=== PATIENT | female | born 1970 | race Caucasian/White ===

== ENCOUNTER 2020-11-24 07:33 | Outpatient (REF) | payer BC, SELFPAY ==
[2020-11-24 11:12] LABS: MANUAL DIFF FLAG NO
[2020-11-24 11:27] LABS: Basophils Percent Auto 0.8 % (0-2); Eosinophils Absolute Auto 0.2 X10*3/uL (0.0-0.4); Eosinophils Percent Auto 4.2 % (0-4); Hematocrit 41.1 % (37-47); Hemoglobin 13.6 g/dl (12.0-16.0); Imm Gran Abs Auto 0.02 X10*3/uL (0.00-0.03); Imm Gran Pct Auto 0.4 % (0.0-0.4); Lymphocytes Absolute Auto 1.7 X10*3/uL (1.2-4.9); Lymphocytes Percent Auto 35.2 % (20-40); Mean Corpuscular HGB Conc 33.1 g/dl (31.0-35.0); Mean Corpuscular Hemoglobin 31.1 pg (27.0-33.0); Mean Corpuscular Volume 93.8 fL (80-98); Mean Platelet Volume 10.3 fL (9.4-12.3); Monocytes Absolute Auto 0.4 X10*3/uL (0.1-1.2); Neutrophils Absolute Auto 2.4 X10*3/uL (2.0-8.3); Neutrophils Percent Auto 51.4 % (45-73); Platelet Count 238 X10*3/uL (160-400); Red Blood Count 4.38 X10*6/uL (4.20-5.50); Red Cell Distribution Width 12.1 % (11.0-16.0); White Blood Count 4.7 X10*3/uL (4.8-10.8)
[2020-11-24 11:29] LABS: Estimated Average Glucose 97 mg/dL
[2020-11-24 11:44] LABS: Alanine Aminotransferase 14 U/L (0-31); Albumin Level 4.2 g/dL (3.5-5.0); Alkaline Phosphatase 89 U/L (39-117); Anion Gap 14 (12-20); Aspartate Amino Transferase 16 U/L (5-31); Bilirubin Total 0.6 mg/dL (0.0-1.0); Blood Urea Nitrogen 19 mg/dL (9-16); Calcium 9.3 mg/dL (8.4-10.2); Carbon Dioxide 25 mmol/L (22-29); Chloride 108 mmol/L (96-108); Cholesterol 254 mg/dL; Estimated Glomerular Filt Rate > 60; Glucose Fasting 83 mg/dL (60-99); HDL Cholesterol 65 mg/dL; LDL Cholesterol Calculated 174 mg/dl; Potassium 4.6 mmol/L (3.3-5.1); Sodium 142 mmol/L (135-145); Total Protein 6.8 g/dL (6.5-8.0); Triglycerides 75 mg/dL
[2020-11-24 11:50] LABS: TSH reflex Free T4 0.74 uIU/mL (0.32-4.0)
== END 2020-11-24 07:34 | disposition home or self-care (01) ==
LOC: HO.HMGCLDS 07:33
PROVIDERS: PCP Internal Medicine; Visit Provider Internal Medicine
DX: E66.09 Other obesity due to excess calories (principal); E78.9 Disorder of lipoprotein metabolism, unspecified; F31.9 Bipolar disorder, unspecified; R73.01 Impaired fasting glucose; Z87.898 Personal history of other specified conditions
CPT/HCPCS: 36415; 80053; 80061; 83036; 84443; 85025

== ENCOUNTER → 2021-03-08 14:53 | Outpatient (BNVA) | payer BC, SELFPAY | PROVIDERS: PCP Internal Medicine; Referring Provider Internal Medicine; Visit Provider Physician Assistant ==

== ENCOUNTER 2021-04-21 11:40 | Day surgery (SDC) | payer BC, SELFPAY ==
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
[2021-04-21 12:25] VITALS: BMI 39.4
[2021-04-21] MEDS: Lactated Ringers 1,000 ML 100 ML IVCONT (13:12)
--- NOTE | 2021-04-21 14:04 | MHC.SHP ---
Pre-Procedural Eval Section A Date of Service: 04/21/21 The patient is an INPATIENT: No The History & Physical has been completed within 30 days and I have reviewed it.: No Section B Chief Complaint: Screening Details of Present Illness: Colon cancer screening Relevant Family History (Specify if Yes): No Relevant Social History: Tobacco Use (past smoker) Present Medications: see Short Stay Collaborative assessment Medical History: Significant History (Bipolar disorder, obesity) History of Previous Operations: Relevant previous surgery/procedure and date(s) (Status post bariatric surgery) Allergies: Allergies Allergy/AdvReac Type Severity Reaction Status Date / Time paroxetine [Paxil] AdvReac Unknown feels Verified 04/21/21 10:35 like I'm in a fog vicodin AdvReac Unknown Gi upset Uncoded 04/21/21 10:35 Review of Systems Sugical H&P ROS: Negative: Constitution, Cardiovascular, Respiratory and Gastrointestinal Exam Surgical H&P Exam: Normal: Heart, Normal: Lungs, Normal: Extremities and Normal: Abdomen Plan Diagnosis/Plan: Unchanged I have reviewed the history and physical and performed a pertinent physical examination on my patient. No changes have occurred unless specified.
--- NOTE | 2021-04-21 14:44 | PM.OP ---
Brief Operative Note Date of Service: 04/21/21 Pre-op diagnosis: Colon cancer screening Post-op diagnosis: other (Diverticulosis, hemorrhoids) Procedure: COLONOSCOPY TILL CECUM Consent: Indications for the procedure and potential complications of bleeding, perforation, reaction to medications and missed diagnosis were discussed with the patient and informed consent was obtained. Instrument: Olympus PCF H 190 L variable stiffness pediatric colonoscope Monitoring: Vital signs and clinical assessment, intermittent blood pressure monitoring, continuous EKG monitoring, Pulse oximetry and Carbon Dioxide monitoring were done throughout the procedure. Colon withdrawl time was 15 minutes. Procedure: The patient was placed in the left lateral decubitis position and pre-procedure medications were administered. After a digital rectal examination of the ano-rectum, the video colonoscope was inserted into the rectum and advanced through the colon to the cecum. The colonoscope was slowly withdrawn in a retrograde panoramic fashion and the colon mucosa was carefully examined including a retroflexed view of the rectum. Findings and interventions are described below. Procedure Difficulty: Without difficulty Findings: Terminal Ileum: Not evaluated Cecum: Normal Ascending Colon: Normal Transverse Colon: Normal Descending Colon: Moderate diverticulosis Sigmoid Colon: Moderate diverticulosis Rectum: Normal Ano-rectum: Moderate internal hemorrhoids and perianal skin tags Colon preparation: Good after some irrigation Impression and Post Procedure Diagnosis: Colonoscopy Findings: No polyps were detected Moderate diverticulosis seen in the left colon Moderate hemorrhoids on retroflexed exam. Plan: Patient has an appointment on 05/04/21 in the GI Clinic with MARÍA Abernathy to cancel since she is not having any GI problems and no polyps were detected.. Repeat Colonoscopy in 10 years. Above findings were reviewed with the patient and diverticulosis handout was given in the discharge area Surgeon: Leda Chisholm MD Anesthesia: MAC (Jessy Mckee CRNA) Was an Parachute/Combatant Diver Officer used for this Procedure?: Yes Parachute/Combatant Diver Officer: Raza Elizondo Estimated blood loss (mL): 0 Pathology: none sent Condition: stable Disposition: PACU
[2021-04-21 14:45] VITALS: BP 108/42; PULSE 86; RESP 16; TEMP 36.2; O2SAT 97
--- NOTE | 2021-04-21 14:47 | W.PM.OPN ---
Operative Note Operative Note Date of Service: 04/21/21 Narrative: Pre-op diagnosis:?Colon cancer screening Post-op diagnosis:?other (Diverticulosis, hemorrhoids) Procedure:? COLONOSCOPY TILL CECUM Consent: Indications for the procedure and potential complications of bleeding, perforation, reaction to medications and missed diagnosis were discussed with the patient and informed consent was obtained. Instrument: Olympus PCF H 190 L variable stiffness pediatric colonoscope Monitoring: Vital signs and clinical assessment, intermittent blood pressure monitoring, continuous EKG monitoring, Pulse oximetry and Carbon Dioxide monitoring were done throughout the procedure. Colon withdrawl time was 15 minutes. Procedure: The patient was placed in the left lateral decubitis position and pre-procedure medications were administered. After a digital rectal examination of the ano-rectum, the video colonoscope was inserted into the rectum and advanced through the colon to the cecum. The colonoscope was slowly withdrawn in a retrograde panoramic fashion and the colon mucosa was carefully examined including a retroflexed view of the rectum. Findings and interventions are described below. Procedure Difficulty: Without difficulty Findings: Terminal Ileum: Not evaluated Cecum:? Normal Ascending Colon:? Normal Transverse Colon:? Normal Descending Colon:? Moderate diverticulosis Sigmoid Colon:? Moderate diverticulosis Rectum:? Normal Ano-rectum:? Moderate internal hemorrhoids and perianal skin tags Colon preparation:? Good after some irrigation Impression and Post Procedure Diagnosis: Colonoscopy Findings: No polyps were detected Moderate diverticulosis seen in the left colon Moderate hemorrhoids on retroflexed exam. Plan: Patient has an appointment on 05/04/21 in the GI Clinic with MARÍA Abernathy to cancel since she is not having any GI problems and no polyps were detected.. Repeat Colonoscopy in 10 years. Above findings were reviewed with the patient and diverticulosis handout was given in the discharge area Surgeon:?Leda Chisholm MD Anesthesia:?MAC (Jessy Mckee CRNA) Was an Braiding Machine Operator used for this Procedure?:?Yes Braiding Machine Operator:?Raza Elizondo Estimated blood loss (mL):?0 Pathology:?none sent Condition:?stable Disposition:?PACU
[2021-04-21 15:00] VITALS: BP 140/82; PULSE 70; RESP 16; TEMP 36.2; O2SAT 98
== END 2021-04-21 15:46 | disposition home or self-care (01) ==
PROVIDERS: PCP Internal Medicine; Visit Provider Internal Medicine Gastroenterology
PROC: 0DJD8ZZ Inspection of Lower Intestinal Tract, Via Natural or Artificial Opening Endoscopic (ICD-10-PCS; CPT 45378; principal; 2021-04-21 13:20)
DX: Z12.11 Encounter for screening for malignant neoplasm of colon (principal); K57.30 Diverticulosis of large intestine without perforation or abscess without bleeding; K64.8 Other hemorrhoids; K64.4 Residual hemorrhoidal skin tags; Z79.899 Other long term (current) drug therapy; Z98.84 Bariatric surgery status; Z87.891 Personal history of nicotine dependence
CPT/HCPCS: 45378

== ENCOUNTER 2021-10-09 16:12 | Outpatient (REF) | payer BC, SELFPAY ==
--- NOTE | ~2021-10-09 | MM_ITS ---
EXAMINATION: MM SCREENING DIGITAL BREAST TOMOSYNTHESIS, BILATERAL CLINICAL INFORMATION: Screening. Asymptomatic. The lifetime risk of breast cancer based on the Tyrer-Cuzick Model is 7%. COMPARISON: Mammography: 01/07/2020, 05/19/2019, 11/27/2018, 11/10/2018, 11/07/2017 TECHNIQUE: Digital breast tomosynthesis is performed in both the craniocaudal and mediolateral oblique views along with computer-aided detection (CAD). Synthesized 2D images are generated from the tomosynthesis. FINDINGS: There are scattered areas of fibroglandular density (ACR BI-RADS breast composition Category b). There are no significant masses, abnormal calcifications, or other abnormalities. There is no architectural abnormality. No developing density. No significant changes from prior study. MM/MM tomosynthesis screening BI IMPRESSION: No mammographic evidence of malignancy. ASSESSMENT: BI-RADS 1: Negative RECOMMENDATION: Routine annual mammography screening. This patient's information was entered into a reminder system with a target due date for their next mammogram.
== END 2021-10-09 16:13 | disposition home or self-care (01) ==
LOC: HO.MAMMO 16:12
PROVIDERS: Visit Provider Internal Medicine
DX: Z12.31 Encounter for screening mammogram for malignant neoplasm of breast (principal)
CPT/HCPCS: 77063; 77067

== ENCOUNTER 2022-10-15 15:01 | Outpatient (REF) | payer BC, SELFPAY ==
--- NOTE | ~2022-10-15 | MM_ITS ---
EXAMINATION: MM SCREENING DIGITAL BREAST TOMOSYNTHESIS, BILATERAL CLINICAL INFORMATION: Screening. Asymptomatic. The lifetime risk of breast cancer based on the Tyrer-Cuzick Model is 6.7%. COMPARISON: Mammography: and studies dating back to 01/08/2014 TECHNIQUE: Digital breast tomosynthesis is performed in both the craniocaudal and mediolateral oblique views along with computer-aided detection (CAD). Synthesized 2D images are generated from the tomosynthesis. FINDINGS: There are scattered areas of fibroglandular density (ACR BI-RADS breast composition Category b). There is a stable parenchymal pattern of the left breast with no new abnormal dominant mass or suspicious grouping of microcalcifications. There is a region of distortion within the upper outer aspect of the right breast which on mediolateral oblique projection may have a more solid component and for which spot compression view is recommended. MM/MM tomosynthesis screening BI IMPRESSION: Question developing density upper outer aspect of the right breast. ASSESSMENT: BI-RADS 0: Incomplete - Need Additional Imaging Evaluation RECOMMENDATION: Routine annual mammography screening. This patient's information was entered into a reminder system with a target due date for their next mammogram.
== END 2022-10-15 15:02 | disposition home or self-care (01) ==
LOC: HO.MAMMO 15:01
PROVIDERS: Visit Provider Internal Medicine
DX: Z12.31 Encounter for screening mammogram for malignant neoplasm of breast (principal)
CPT/HCPCS: 77063; 77067

== ENCOUNTER 2022-11-07 14:46 | Outpatient (REF) | payer BC, SELFPAY ==
--- NOTE | ~2022-11-07 | MM_ITS ---
EXAMINATION: MM DIAGNOSTIC DIGITAL BREAST TOMOSYNTHESIS, RIGHT CLINICAL INFORMATION: Recall from screening for question of developing density upper outer right breast. COMPARISON: Multiple prior mammography exams, including most recent 10/15/2022. TECHNIQUE: Digital breast tomosynthesis is performed. 2D images are generated from the tomosynthesis. The following views are obtained: Spot MLO, standard ML. FINDINGS: There are scattered areas of fibroglandular density (ACR BI-RADS breast composition Category b). The additional views show no significant changes from prior studies. There is no architectural abnormality, developing density, or mass. Recent screening mammography appears similar to multiple prior exams. Results are discussed with the patient at time of visit. MM/MM tomosynthesis added views R IMPRESSION: No mammographic evidence of malignancy. ASSESSMENT: BI-RADS 1: Negative RECOMMENDATION: Routine annual mammography screening. This patient's information was entered into a reminder system with a target due date for their next mammogram.
== END 2022-11-07 14:47 | disposition home or self-care (01) ==
LOC: HO.MAMMO 14:46
PROVIDERS: PCP Internal Medicine; Visit Provider Internal Medicine
DX: N64.89 Other specified disorders of breast (principal)
CPT/HCPCS: 77061; 77065

== ENCOUNTER 2023-01-29 09:02 | Outpatient (AMB) | payer BC, SELFPAY ==
--- NOTE | 2023-01-29 09:03 | MHC.PC.OV ---
Vital Signs 01/29/23 09:05 Height 5 ft 4 in Weight 233 lb BMI 40.0 BP 130/84 Blood Pressure Location Lt brachial Position Sitting Pulse 76 Pulse Source Pulse Oximeter Pulse Oximetry (%) 98 Oxygen Delivery Method Room Air Intake Visit Reasons: PE Allergies paroxetine [Paxil] Adverse Reaction (Unknown, Verified 01/29/23 09:05) feels like I'm in a fog vicodin Adverse Reaction (Unknown, Uncoded 01/29/23 09:05) Gi upset Medication List - Last Reconciled 01/29/23 by Kaylin Oneill MD buspirone 10 mg PO ONCE PRN 90 days fluoxetine 20 mg PO DAILY multivitamin (Daily Multi-Vitamin tablet) 1 tab PO DAILY omega 3-uci-ycj-fish oil 60-90-500 mg (Fish Oil) 1 cap PO DAILY quetiapine 100 mg PO BEDTIME simvastatin 10 mg PO DAILY 90 days vitamin C-biotin PO Tobacco use date assessed: 10/10/22 Dental Screening Dental Screen Date: 01/29/23 Did you have a dental visit in the last 12 months?: No Did you have a dental problem in the last 6 months where you did not have access to dental care?: No Was dental information given to patient?: Patient has dentist HPI PE HPI Details Physical exam appointment patient want to try Ozempic as a weight loss She has a history of gastric sleeve 6 years ago and is exercising daily patient says that she knows what to eat what not to eat and is not able to lose weight. We went over the side effect of this medication including hypoglycemia pancreatitis nausea I have encouraged her to read the whole side effect profile given through the pharmacy Once patient picked up the medication she will book appointment with a nurse so we can teach her how to inject. Patient will need monthly visit after that so we can continue to monitor the progress. Mammogram was October of this year Pap smear patient have appointment with Dr. Kim that March 28 of this year Colonoscopy was in May 2 years ago at [facility] patient will be due in 8 more years. Medication list reviewed Labs to be done before next visit in 3 months. [facility] Medical History Anxiety and depression Bipolar disorder History of alcohol abuse History of panic attacks Iron deficiency anemia Surgical History Status post bariatric surgery Family History Other Substance use disorder Social History Household Members: Spouse Housing: House Alcohol intake: former Year quit: 2020 Patient Tobacco Use Status: Former Tobacco user Quit Date: 1993 e-Cigarette/Vaping Use: Never Used Second Hand Smoke Exposure: No service: No Current occupational status: unemployed Cognitive needs: No Hearing needs: No Vision needs: No Questionnaire Thrive Questionnaire Date Thrive assessed: 11/21/21 AUDIT C Alcohol Use Questionnaire (AUDIT-C) 1. How often do you have a drink containing alcohol?: Never 3. How often do you have six or more drinks on one occasion?: Never Total Score: 0 Score Reviewed/Action Taken: No SKYLER-7 AMB Questionnaire SKYLER-7 Date SKYLER - 7 assessed: 11/21/21 Source: Developed by Drs. Michael Stoner, Vanda Cedillo, Anatoliy Wilson and colleagues, with an educational rodri from [employer]. Review of Systems Const Denies chills, Denies fever(s) and Denies headache(s) Eyes Denies blurry vision ENT Denies headache(s), Denies nasal discharge, Denies nasal obstruction, Denies odynophagia and Denies sinus pain Card Denies chest pain at rest and Denies chest pain with activity Resp Denies cough and Denies hemoptysis GI Denies diarrhea, Denies odynophagia, Denies vomiting and Denies hematemesis Reports as per HPI Musc Denies abnormal gait Skin/Breast Reports as per HPI Neuro Denies Neuro-related abnormal movements, Denies Abnormal speech present, Denies abnormal gait, Denies headache(s) and Denies Sensory deficit (Neuro) Psych Denies mood swings and Denies paranoia Endo Reports as per HPI Matias/Lymph Reports as per HPI Aller/Immun Reports as per HPI Physical exam (Primary Care) Vital Signs: Last Vital Signs Pulse 76 01/29/23 09:05 BP 130/84 01/29/23 09:05 Pulse Ox 98 01/29/23 09:05 Oxygen Delivery Method Room Air 01/29/23 09:05 BMI result Body Mass Index 40.0 Tobacco/Smoking Status: Tobacco use Status Tobacco use date assessed 10/10/22 01/29/23 09:08 Patient Tobacco Use Status Former Tobacco user 01/29/23 09:08 e-Cigarette/Vaping Use Never Used 01/29/23 09:08 Thrive Assessment: Date of Thrive Assessment Date Thrive assessed 11/21/21 01/29/23 09:08 Const General: cooperative, comfortable and no acute distress Orientation/consciousness: patient oriented x3 HENMT Head: Yes normocephalic and Yes atraumatic Eyes General: appearance normal, both eyes and all related structures Pupils: Equal, round and reactive pupils present EOM: EOMs intact bilaterally Neck Neck: Yes supple and No lymphadenopathy Thyroid: Thyroid normal Lymphatic: no lymphadenopathy noted Chest Breast/axilla palpation: normal palpation of the breasts Resp Effort & Inspection: normal respiratory effort and able to speak in complete sentences Auscultation: clear to auscultation bilaterally Cardio Heart sounds: S1 normal heart sound present and S2 normal heart sound present GI Palpation (GI): Soft to palpation and nontender Auscultation: normal bowel sounds General: Yes no CVA tenderness Back/Spine/Pelvis Back: no CVA tenderness Skin General skin exam: elasticity normal and turgor normal Neuro General: patient oriented x3 and gait normal Cranial nerves: Yes Equal, round and reactive pupils present Speech: No Abnormal speech present Sensory Exam: No Sensory deficit (Neuro) Coordination: tandem gait normal and Romberg test negative Extrem General: Yes normal exam except as noted and No edema Assessment and Plan Assessment & Plan (1) Encounter for general adult medical examination with abnormal findings: Code(s): Z00.01 - Encounter for general adult medical examination with abnormal findings (2) Bipolar disorder: Code(s): F31.9 - Bipolar disorder, unspecified (3) Lipid disorder: Code(s): E78.9 - Disorder of lipoprotein metabolism, unspecified (4) Impaired fasting blood sugar: Code(s): R73.01 - Impaired fasting glucose (5) Obesity due to excess calories: Code(s): E66.09 - Other obesity due to excess calories (6) Major depressive disorder, severe: Code(s): F32.2 - Major depressive disorder, single episode, severe without psychotic features (7) Anxiety disorder: Code(s): F41.9 - Anxiety disorder, unspecified Plan Physical exam appointment patient want to try Ozempic as a weight loss She has a history of gastric sleeve 6 years ago and is exercising daily patient says that she knows what to eat what not to eat and is not able to lose weight. We went over the side effect of this medication including hypoglycemia pancreatitis nausea I have encouraged her to read the whole side effect profile given through the pharmacy Once patient picked up the medication she will book appointment with a nurse so we can teach her how to inject. Patient will need monthly visit after that so we can continue to monitor the progress. Mammogram was October of this year Pap smear patient have appointment with Dr. Kim that March 28 of this year Colonoscopy was in May 2 years ago at [facility] patient will be due in 8 more years. Medication list reviewed Labs to be done before next visit in 3 months. Orders: Orders Comprehensive [place]. Panel Fast Today E66.09 - Other obesity due to excess calories, E78.9 - Disorder of lipoprotein metabolism, unspecified, F31.9 - Bipolar disorder, unspecified, F32.2 - Major depressive disorder, single episode, severe without psychotic features, F41.9 - Anxiety disorder, unspecified, R73.01 - Impaired fasting glucose, Z00.01 - Encounter for general adult medical examination with abnormal findings Lipid Panel Today E66.09 - Other obesity due to excess calories, E78.9 - Disorder of lipoprotein metabolism, unspecified, F31.9 - Bipolar disorder, unspecified, F32.2 - Major depressive disorder, single episode, severe without psychotic features, F41.9 - Anxiety disorder, unspecified, R73.01 - Impaired fasting glucose, Z00.01 - Encounter for general adult medical examination with abnormal findings TSH reflex Free T4 Today E66.09 - Other obesity due to excess calories, E78.9 - Disorder of lipoprotein metabolism, unspecified, F31.9 - Bipolar disorder, unspecified, F32.2 - Major depressive disorder, single episode, severe without psychotic features, F41.9 - Anxiety disorder, unspecified, R73.01 - Impaired fasting glucose, Z00.01 - Encounter for general adult medical examination with abnormal findings Complete Blood Count Auto Diff Today E66.09 - Other obesity due to excess calories, E78.9 - Disorder of lipoprotein metabolism, unspecified, F31.9 - Bipolar disorder, unspecified, F32.2 - Major depressive disorder, single episode, severe without psychotic features, F41.9 - Anxiety disorder, unspecified, R73.01 - Impaired fasting glucose, Z00.01 - Encounter for general adult medical examination with abnormal findings Medications: New semaglutide for 4 weeks 0.25 mg (0.368 mL) subcut QWEEK 2 mL 0RF 30 days Coding Level of Care Code Est Pt Prev Care 40-64y(24244) Diagnoses Encounter for general adult medical examination with abnormal findings Z00.01 Bipolar disorder F31.9 Lipid disorder E78.9 Impaired fasting blood sugar R73.01 Obesity due to excess calories E66.09 Major depressive disorder, severe F32.2 Anxiety disorder F41.9
[2023-01-29 09:05] VITALS: BP 130/84; PULSE 76; O2SAT 98; BMI 40.0
== END 2023-01-29 09:35 | disposition home or self-care (01) ==
PROVIDERS: Visit Provider Internal Medicine
DX: Z00.01 Encounter for general adult medical examination with abnormal findings (principal); F31.9 Bipolar disorder, unspecified; F41.9 Anxiety disorder, unspecified; R73.01 Impaired fasting glucose; E78.9 Disorder of lipoprotein metabolism, unspecified; E66.09 Other obesity due to excess calories
CPT/HCPCS: 99396

== ENCOUNTER 2023-04-18 08:57 | Outpatient (REF) | payer BC, SELFPAY ==
[2023-04-18 11:04] LABS: MANUAL DIFF FLAG NO
[2023-04-18 11:32] LABS: Basophils Absolute Auto 0.1 X10*3/uL (0.0-0.2); Basophils Percent Auto 0.9 % (0-2); Eosinophils Absolute Auto 0.2 X10*3/uL (0.0-0.4); Eosinophils Percent Auto 3.3 % (0-4); Hematocrit 38.9 % (37.0-47.0); Imm Gran Abs Auto 0.02 X10*3/uL (0.00-0.03); Imm Gran Pct Auto 0.4 % (0.0-0.4); Lymphocytes Absolute Auto 1.6 X10*3/uL (1.2-4.9); Lymphocytes Percent Auto 28.6 % (20-40); Mean Corpuscular HGB Conc 33.4 g/dl (31.0-35.0); Mean Corpuscular Hemoglobin 30.7 pg (27.0-33.0); Mean Platelet Volume 9.8 fL (9.4-12.3); Monocytes Absolute Auto 0.4 X10*3/uL (0.1-1.2); Monocytes Percent Auto 7.9 % (2-11); Neutrophils Absolute Auto 3.2 x10*3/uL (2.0-8.3); Neutrophils Percent Auto 58.9 % (45-73); Platelet Count 237 X10*3/uL (160-400); Red Blood Count 4.23 X10*6/uL (4.20-5.50); Red Cell Distribution Width 12.3 % (11.0-16.0); White Blood Count 5.5 X10*3/uL (4.8-10.8)
[2023-04-18 12:46] LABS: TSH reflex Free T4 0.82 uIU/mL (0.32-4.0)
[2023-04-18 13:00] LABS: Anion Gap 12 (12-20)
[2023-04-18 13:05] LABS: Alanine Aminotransferase 15 U/L (0-31); Alkaline Phosphatase 96 U/L (39-117); Aspartate Amino Transferase 16 U/L (5-31); Bilirubin Total 0.7 mg/dL (0.0-1.0); Blood Urea Nitrogen 13 mg/dL (9-16); Calcium 9.7 mg/dL (8.4-10.2); Carbon Dioxide 26 mmol/L (22-29); Chloride 107 mmol/L (96-108); Cholesterol 212 mg/dL (<200); Estimated Glomerular Filt Rate > 60; Glucose Fasting 77 mg/dL (60-99); HDL Cholesterol 70 mg/dL (>40); LDL Cholesterol Calculated 124 mg/dL (<100); Potassium 4.1 mmol/L (3.3-5.1); Sodium 141 mmol/L (135-145); Total Protein 6.9 g/dL (6.5-8.0); Triglycerides 94 mg/dL (<150)
== END 2023-04-18 08:58 | disposition home or self-care (01) ==
LOC: HO.HMGCLDS 08:57
PROVIDERS: PCP Internal Medicine; Visit Provider Internal Medicine
DX: Z00.01 Encounter for general adult medical examination with abnormal findings (principal); F41.9 Anxiety disorder, unspecified; E66.09 Other obesity due to excess calories; F31.9 Bipolar disorder, unspecified; R73.01 Impaired fasting glucose; E78.9 Disorder of lipoprotein metabolism, unspecified
CPT/HCPCS: 36415; 80053; 80061; 84443; 85025

== ENCOUNTER 2023-05-07 15:08 | Outpatient (AMB) | payer BC, SELFPAY ==
--- NOTE | 2023-05-07 15:10 | A.OFFPC_ITS ---
Vital Signs 3 05/07/23 15:16 Height 5 ft 4 in Weight 244 lb 4 oz BMI 41.9 BP 152/78 H Blood Pressure Location Rt brachial Position Sitting Pulse 81 Pulse Source Pulse Oximeter Pulse Oximetry (%) 98 Oxygen Delivery Method Room Air Intake Visit Reasons: 3 month f/u Allergies paroxetine [Paxil] Adverse Reaction (Unknown, Verified 05/07/23 15:11) feels like I'm in a fog vicodin Adverse Reaction (Unknown, Uncoded 01/29/23 09:05) Gi upset Medication List - Last Reconciled 05/07/23 by Kaylin Oneill MD buspirone 10 mg PO ONCE PRN 90 days fluoxetine 20 mg PO DAILY multivitamin (Daily Multi-Vitamin tablet) 1 tab PO DAILY omega 8-pje-yki-fish oil 60-90-500 mg (Fish Oil) 1 cap PO DAILY quetiapine 100 mg PO BEDTIME semaglutide 0.25 mg (0.368 mL) subcut QWEEK 30 days simvastatin 10 mg PO DAILY 90 days vitamin C-biotin PO Tobacco use date assessed: 05/07/23 Dental Screening Dental Screen Date: 05/07/23 Did you have a dental visit in the last 12 months?: Yes Did you have a dental problem in the last 6 months where you did not have access to dental care?: No Was dental information given to patient?: Patient has dentist HPI 3 month f/u 2 HPI0 Details Patient is a 53 year-old female came in today for her regular 3 month follow-up appointment Patient says that she fell few days ago and hit left side of chest She was evaluated in urgent care center [facility] and had x-rays done which did not show any fracture of rib But patient is having severe pain and Tylenol is not helping She is having difficulty taking deep breaths as well I have sent tramadol script she may take that up to 2 times a day if she is at home. She has stopped taking fluoxetine But continue taking buspirone for anxiety as needed Major depression/bipolar: Continue Seroquel 100 mg at bedtime patient is doing well with this regimen She has seen OBGYN to have the path at [facility] Even though patient have a history of hysterectomy Her BMI is 49.9 patient is morbidly obese having difficulty losing weight Follow-up 3 months [facility] Medical History Bipolar disorder Iron deficiency anemia History of panic attacks Anxiety and depression History of alcohol abuse Surgical History Status post bariatric surgery Family History Other Substance use disorder Social History Household Members: Spouse Housing: House Alcohol intake: former Year quit: 2020 Patient Tobacco Use Status: Former Tobacco user Quit Date: 1993 e-Cigarette/Vaping Use: Never Used Second Hand Smoke Exposure: No service: No Current occupational status: unemployed Cognitive needs: No Hearing needs: No Vision needs: No Questionnaire PHQ-9 Over the last 2 weeks, how often have you been bothered by any of the following problems? 1. Little interest or pleasure in doing things: not at all 2. Feeling down, depressed, or hopeless: not at all 3. Trouble falling or staying asleep, or sleeping too much: several days 4. Feeling tired or having little energy: several days 5. Poor appetite or overeating: nearly every day 6. Feeling bad about yourself - or that you are a failure or have let yourself or your family down: more than half the days 7. Trouble concentrating on things, such as reading the newspaper or watching television: not at all 8. Moving or speaking so slowly that other people could have noticed. Or the opposite - being so fidgety or restless that you have been moving around a lot more than usual: not at all 9. Thoughts that you would be better off or of hurting yourself in some way: not at all Total score: 7 Depression Screening Interpretation: Negative Depression Screening Done: Yes [id number] - PHQ-9 Billing: Yes Source: Developed by Drs. Michael Stoner, Vanda Cedillo, Anatoliy Wilson and colleagues, with an educational rodri from [employer]. Thrive Questionnaire Date Thrive assessed: 05/07/23 I am a: Patient What is your living situation today?: I have a steady place to live Within the past 12 months, did the food you bought not last and you didn't have the money to get more?: Never true Within the past 12 months, did you worry whether your food would run out before you got money to buy more?: Never true Do you have trouble paying for medicines?: No Do you have trouble getting transportation to medical appointments?: No Do you have trouble paying your heating and electricity bill?: No Do you have trouble taking care of your child, family member or friend?: No Do you have trouble with day-to-day activities such as bathing, preparing meals, shopping, managing finances, etc.?: No Are you currently unemployed and looking for a job?: No Are you interested in more education?: No Please select the resources that you would like help with: None Currently or been in a relationship where the following occur: no concerns reported AUDIT C Alcohol Use Questionnaire (AUDIT-C) 1. How often do you have a drink containing alcohol?: Never 3. How often do you have six or more drinks on one occasion?: Never Total Score: 0 Score Reviewed/Action Taken: Yes SKYLER-7 AMB Questionnaire SKYLER-7 Date SKYLER - 7 assessed: 05/07/23 Feeling nervous, anxious, or on edge: 0 = Not at all Not being able to stop or control worryin = Not at all Worrying too much about different things: 0 = Not at all Trouble relaxin = Several days Being so restless that it is hard to sit still: 0 = Not at all Becoming easily annoyed or irritable: 0 = Not at all Feeling afraid as if something awful might happen: 0 = Not at all Total SKYLER-7 score (0-4 normal; 5-9 mild; 10-14 moderate; 15-21 severe): 1 Source: Developed by Drs. Michael Stoner, Vanda Cedillo, Anatoliy Wilson and colleagues, with an educational rodri from [employer]. SKYLER-7 Assessment Billing SKYLER-7 Assessment Tool: SKYLER-7 Assessment 74785 Review of Systems Const Denies chills and Denies fever(s) ENT Denies epistaxis and Denies nasal discharge Resp Denies chest congestion, Denies cough and Denies hemoptysis GI Denies diarrhea and Denies nausea Skin/Breast Denies rash Neuro Reports no additional complaints Psych Reports no additional complaints Endo Reports no additional complaints Physical exam (Primary Care) Vital Signs: Last Vital Signs Pulse 81 05/07/23 15:16 BP 152/78 H 05/07/23 15:16 Pulse Ox 98 05/07/23 15:16 Oxygen Delivery Method Room Air 05/07/23 15:16 BMI result Body Mass Index 41.9 Tobacco/Smoking Status: Tobacco use Status Tobacco use date assessed 05/07/23 05/07/23 15:12 Patient Tobacco Use Status Former Tobacco user 05/07/23 15:12 e-Cigarette/Vaping Use Never Used 05/07/23 15:12 PHQ-9: PHQ-9 Score PHQ-9: Total score 7 05/07/23 15:32 Depression Screening Interpretation: Negative Thrive Assessment: Date of Thrive Assessment Date Thrive assessed 05/07/23 05/07/23 15:32 Currently or been in a relationship where the following occur: no concerns reported Const General: cooperative, comfortable and no acute distress Orientation/consciousness: patient oriented x3 HENMT Head: Yes normocephalic Eyes General: appearance normal, both eyes and all related structures Neck Neck: Yes supple Chest Chest/axillae images: 2 1. Side of pain with palpation Resp Effort & Inspection: normal respiratory effort, no cough and no stridor Cardio Rhythm: regular rhythm Heart sounds: S1 normal heart sound present and S2 normal heart sound present Skin General skin exam: turgor normal Neuro General: patient oriented x3, tone normal and moves all extremities Extrem Right lower extremity: no edema Left lower extremity: no edema Assessment and Plan Assessment & Plan (1) Bipolar disorder: Code(s): F31.9 - Bipolar disorder, unspecified Qualifiers: Active/Remission status: in full remission Most recent bipolar episode type: mixed Qualified Code(s): F31.78 - Bipolar disorder, in full remission, most recent episode mixed (2) Lipid disorder: Code(s): E78.9 - Disorder of lipoprotein metabolism, unspecified (3) Morbid obesity due to excess calories: Code(s): E66.01 - Morbid (severe) obesity due to excess calories (4) Impaired fasting blood sugar: Code(s): R73.01 - Impaired fasting glucose (5) Major depressive disorder, severe: Code(s): F32.2 - Major depressive disorder, single episode, severe without psychotic features (6) Anxiety disorder: Code(s): F41.9 - Anxiety disorder, unspecified Qualifiers: Anxiety disorder type: generalized anxiety disorder Qualified Code(s): F41.1 - Generalized anxiety disorder (7) Rib pain on left side: Code(s): R07.81 - Pleurodynia Plan Patient is a 53 year-old female came in today for her regular 3 month follow-up appointment Patient says that she fell few days ago and hit left side of chest She was evaluated in urgent care center [place] and had x-rays done which did not show any fracture of rib But patient is having severe pain and Tylenol is not helping She is having difficulty taking deep breaths as well I have sent tramadol script she may take that up to 2 times a day if she is at home. She has stopped taking fluoxetine But continue taking buspirone for anxiety as needed Major depression/bipolar: Continue Seroquel 100 mg at bedtime patient is doing well with this regimen She has seen OBGYN to have the path at [facility] Even though patient have a history of hysterectomy Her BMI is 49.9 patient is morbidly obese having difficulty losing weight Follow-up 3 months Medications: New 2 tramadol 50 mg PO BID PRN 20 tabs 0RF pain 10 days Refilled 2 simvastatin 10 mg PO DAILY 90 tabs 1RF 90 days quetiapine 100 mg PO BEDTIME 90 tabs 1RF semaglutide for 4 weeks 0.25 mg (0.368 mL) subcut QWEEK 2 mL 0RF 30 days Discontinued 2 fluoxetine Discontinued Reason: Patient Completed Course 20 mg PO DAILY 90 caps 1RF Coding Level of Care Code Est Pt Level 4 (37446) Diagnoses Bipolar disorder, in full remission, most recent episode mixed F31.78 Active/Remission status: in full remission Most recent bipolar episode type: mixed Lipid disorder E78.9 Morbid obesity due to excess calories E66.01 Impaired fasting blood sugar R73.01 Major depressive disorder, severe F32.2 Generalized anxiety disorder F41.1 Anxiety disorder type: generalized anxiety disorder Rib pain on left side R07.81 Additional Codes SKYLER-7 Assessment Billing - SKYLER-7 Assessment Tool: SKYLER-7 Assessment 90507 ([id number])
[2023-05-07 15:16] VITALS: BP 152/78; PULSE 81; O2SAT 98; BMI 41.9
== END 2023-05-07 15:28 | disposition home or self-care (01) ==
PROVIDERS: PCP Internal Medicine; Visit Provider Internal Medicine
DX: F31.78 Bipolar disorder, in full remission, most recent episode mixed (principal); Z68.41 Body mass index [BMI] 40.0-44.9, adult; E66.01 Morbid (severe) obesity due to excess calories; E78.9 Disorder of lipoprotein metabolism, unspecified; R73.01 Impaired fasting glucose; F41.1 Generalized anxiety disorder; R07.81 Pleurodynia
CPT/HCPCS: 99214

== ENCOUNTER 2023-08-22 08:30 | Outpatient (AMB) | payer BC, SELFPAY ==
--- NOTE | 2023-08-22 08:45 | MHC.PC.OV ---
Intake Visit Reasons: 6 month f/u [phone] Allergies paroxetine [Paxil] Adverse Reaction (Unknown, Verified 08/22/23 08:46) feels like I'm in a fog vicodin Adverse Reaction (Unknown, Uncoded 01/29/23 09:05) Gi upset Medication List - Last Reconciled 08/22/23 by Kaylin Oneill MD multivitamin (Daily Multi-Vitamin tablet) 1 tab PO DAILY omega 3-zqh-tdq-fish oil 60-90-500 mg (Fish Oil) 1 cap PO DAILY quetiapine 100 mg PO BEDTIME simvastatin 10 mg PO DAILY 90 days vitamin C-biotin PO Tobacco use date assessed: 08/22/23 Dental Screening Dental Screen Date: 08/22/23 Did you have a dental visit in the last 12 months?: Yes Did you have a dental problem in the last 6 months where you did not have access to dental care?: No Was dental information given to patient?: Patient has dentist HPI 6 month f/u [phone] HPI Details Patient is a 53 year-old female this is a telemedicine video conference Patient is doing well Need refill on her medications Moods are stable Patient is on Seroquel 100 mg no longer taking buspirone which I have removed from her medication list Labs were done in March patient will have another set of labs done in October before her next appointment [facility] Medical History Bipolar disorder Iron deficiency anemia History of panic attacks Anxiety and depression History of alcohol abuse Surgical History Status post bariatric surgery Family History Other Substance use disorder Social History Household Members: Spouse Housing: House Alcohol intake: former Year quit: 2020 Patient Tobacco Use Status: Former Tobacco user Quit Date: 1993 e-Cigarette/Vaping Use: Never Used Second Hand Smoke Exposure: No service: No Current occupational status: unemployed Cognitive needs: No Hearing needs: No Vision needs: No Questionnaire Thrive Questionnaire Date Thrive assessed: 05/07/23 AUDIT C Alcohol Use Questionnaire (AUDIT-C) 1. How often do you have a drink containing alcohol?: Never 3. How often do you have six or more drinks on one occasion?: Never Total Score: 0 Score Reviewed/Action Taken: Yes SKYLER-7 AMB Questionnaire SKYLER-7 Date SKYLER - 7 assessed: 05/07/23 Source: Developed by Drs. Michael Stoner, Vanda Cedillo, Anatoliy Wilson and colleagues, with an educational rodri from [employer]. Review of Systems Const Denies chills and Denies fever(s) ENT Denies epistaxis and Denies nasal discharge Card Denies chest pain Resp Denies chest congestion, Denies cough and Denies hemoptysis GI Denies diarrhea and Denies nausea Skin/Breast Denies rash Neuro Reports no additional complaints Psych Reports no additional complaints Endo Reports no additional complaints Physical exam (Primary Care) Tobacco/Smoking Status: Tobacco use Status Tobacco use date assessed 08/22/23 08/22/23 08:46 Patient Tobacco Use Status Former Tobacco user 08/22/23 08:46 e-Cigarette/Vaping Use Never Used 08/22/23 08:46 Thrive Assessment: Date of Thrive Assessment Date Thrive assessed 05/07/23 08/22/23 08:46 Telehealth Telehealth Location of provider rendering services: practice address Location of patient: address on file Patient Identification confirmed using: Name, : Yes Telehealth method: video Patient verbally consented to treatment: Yes Patient verbally consented to billing insurance company: Yes Patient informed of any privacy concerns related to visit: Yes Minutes spent on Phone/Video with Pt.: 13 Assessment and Plan Assessment & Plan (1) Major depressive disorder, severe: Code(s): F32.2 - Major depressive disorder, single episode, severe without psychotic features (2) Anxiety disorder: Code(s): F41.9 - Anxiety disorder, unspecified Qualifiers: Anxiety disorder type: generalized anxiety disorder Qualified Code(s): F41.1 - Generalized anxiety disorder (3) Impaired fasting blood sugar: Code(s): R73.01 - Impaired fasting glucose (4) Lipid disorder: Code(s): E78.9 - Disorder of lipoprotein metabolism, unspecified (5) Bipolar disorder: Code(s): F31.9 - Bipolar disorder, unspecified Qualifiers: Active/Remission status: in full remission Most recent bipolar episode type: mixed Qualified Code(s): F31.78 - Bipolar disorder, in full remission, most recent episode mixed Plan Patient is a 53 year-old female this is a telemedicine video conference Patient is doing well Need refill on her medications Moods are stable Patient is on Seroquel 100 mg no longer taking buspirone which I have removed from her medication list Labs were done in March patient will have another set of labs done in October before her next appointment Orders: Orders Complete Blood Count Auto Diff Today E78.9 - Disorder of lipoprotein metabolism, unspecified, F31.9 - Bipolar disorder, unspecified, F32.2 - Major depressive disorder, single episode, severe without psychotic features, F41.9 - Anxiety disorder, unspecified, R73.01 - Impaired fasting glucose Comprehensive [place]. Panel Fast Today E78.9 - Disorder of lipoprotein metabolism, unspecified, F31.9 - Bipolar disorder, unspecified, F32.2 - Major depressive disorder, single episode, severe without psychotic features, F41.9 - Anxiety disorder, unspecified, R73.01 - Impaired fasting glucose Lipid Panel Today E78.9 - Disorder of lipoprotein metabolism, unspecified, F31.9 - Bipolar disorder, unspecified, F32.2 - Major depressive disorder, single episode, severe without psychotic features, F41.9 - Anxiety disorder, unspecified, R73.01 - Impaired fasting glucose Medications: Refilled simvastatin 10 mg PO DAILY 90 tabs 1RF 90 days quetiapine 100 mg PO BEDTIME 90 tabs 1RF Coding Level of Care Code Tele Est Pt Level 3 (96012) Diagnoses Major depressive disorder, severe F32.2 Generalized anxiety disorder F41.1 Anxiety disorder type: generalized anxiety disorder Impaired fasting blood sugar R73.01 Lipid disorder E78.9 Bipolar disorder, in full remission, most recent episode mixed F31.78 Active/Remission status: in full remission Most recent bipolar episode type: mixed
== END 2023-08-22 12:38 | disposition home or self-care (01) ==
LOC: HO.HMGC 08:30
PROVIDERS: PCP Internal Medicine; Visit Provider Internal Medicine
DX: R73.01 Impaired fasting glucose (principal); F31.78 Bipolar disorder, in full remission, most recent episode mixed; F41.1 Generalized anxiety disorder; E78.9 Disorder of lipoprotein metabolism, unspecified
CPT/HCPCS: 99213

== ENCOUNTER 2023-11-05 14:49 | Outpatient (AMB) | payer BC, SELFPAY ==
--- NOTE | 2023-11-05 14:53 | A.OFFPC_ITS ---
Vital Signs 11/05/23 14:54 Height 5 ft 4 in Weight 221 lb 6 oz BMI 38.0 BP 138/76 Blood Pressure Location Lt brachial Position Sitting Pulse 75 Pulse Source Pulse Oximeter Pulse Oximetry (%) 96 Oxygen Delivery Method Room Air Intake Visit Reasons: 9 month f/u Allergies paroxetine [Paxil] Adverse Reaction (Unknown, Verified 11/05/23 14:55) feels like I'm in a fog vicodin Adverse Reaction (Unknown, Uncoded 01/29/23 09:05) Gi upset Medication List - Last Reconciled 11/05/23 by Kaylin Oneill MD multivitamin (Daily Multi-Vitamin tablet) 1 tab PO DAILY omega 2-nzu-xzn-fish oil 60-90-500 mg (Fish Oil) 1 cap PO DAILY quetiapine 100 mg PO BEDTIME simvastatin 10 mg PO DAILY 90 days Tobacco use date assessed: 11/05/23 Dental Screening Dental Screen Date: 11/05/23 Did you have a dental visit in the last 12 months?: Yes Did you have a dental problem in the last 6 months where you did not have access to dental care?: No Was dental information given to patient?: Patient has dentist HPI 9 month f/u HPI0 Details Patient is a 53 year-old female this is a regular follow-up appointment Patient is doing well Need refill on her medications Moods are stable Patient is on Seroquel 100 mg And simvastatin 10 mg for lipid control She forgot to do the labs, patient says that she will do it this weekend Has appointment in January for physical examination Vital signs stable BMI is elevated need to lose weight PFSH Medical History Bipolar disorder Iron deficiency anemia History of panic attacks Anxiety and depression History of alcohol abuse Surgical History Status post bariatric surgery Family History Other Substance use disorder Social History Household Members: Spouse Housing: House Alcohol intake: former Year quit: 2020 Patient Tobacco Use Status: Former Tobacco user Quit Date: 1993 e-Cigarette/Vaping Use: Never Used Second Hand Smoke Exposure: No service: No Current occupational status: unemployed Cognitive needs: No Hearing needs: No Vision needs: No Questionnaire PHQ-9 Over the last 2 weeks, how often have you been bothered by any of the following problems? 1. Little interest or pleasure in doing things: not at all 2. Feeling down, depressed, or hopeless: not at all 3. Trouble falling or staying asleep, or sleeping too much: not at all 4. Feeling tired or having little energy: not at all 5. Poor appetite or overeating: several days 6. Feeling bad about yourself - or that you are a failure or have let yourself or your family down: not at all 7. Trouble concentrating on things, such as reading the newspaper or watching television: not at all 8. Moving or speaking so slowly that other people could have noticed. Or the opposite - being so fidgety or restless that you have been moving around a lot more than usual: not at all 9. Thoughts that you would be better off or of hurting yourself in some way: not at all Total score: 1 Depression Screening Interpretation: Negative Depression Screening Done: Yes 51343 - PHQ-9 Billing: Yes Source: Developed by Drs. Michael Stoner, Vanda Cedillo, Anatoliy Wilson and colleagues, with an educational rodri from [employer]. Thrive Questionnaire Date Thrive assessed: 11/05/23 I am a: Patient What is your living situation today?: I have a steady place to live Within the past 12 months, did the food you bought not last and you didn't have the money to get more?: Never true Within the past 12 months, did you worry whether your food would run out before you got money to buy more?: Never true Do you have trouble paying for medicines?: No Do you have trouble getting transportation to medical appointments?: No Do you have trouble paying your heating and electricity bill?: No Do you have trouble taking care of your child, family member or friend?: No Do you have trouble with day-to-day activities such as bathing, preparing meals, shopping, managing finances, etc.?: No Are you currently unemployed and looking for a job?: No Are you interested in more education?: No Please select the resources that you would like help with: None Currently or been in a relationship where the following occur: no concerns reported THRIVE Score: 0 AUDIT C Alcohol Use Questionnaire (AUDIT-C) 1. How often do you have a drink containing alcohol?: Never 3. How often do you have six or more drinks on one occasion?: Never Total Score: 0 Score Reviewed/Action Taken: Yes SKYLER-7 AMB Questionnaire SKYLER-7 Date SKYLER - 7 assessed: 11/05/23 Feeling nervous, anxious, or on edge: 0 = Not at all Not being able to stop or control worryin = Not at all Worrying too much about different things: 0 = Not at all Trouble relaxin = Not at all Being so restless that it is hard to sit still: 0 = Not at all Becoming easily annoyed or irritable: 0 = Not at all Feeling afraid as if something awful might happen: 0 = Not at all Total SKYLER-7 score (0-4 normal; 5-9 mild; 10-14 moderate; 15-21 severe): 0 Source: Developed by Drs. Michael Stoner, Vanda Cedillo, Anatoliy Wilson and colleagues, with an educational rodri from [employer]. SKYLER-7 Assessment Billing SKYLER-7 Assessment Tool: SKYLER-7 Assessment 34077 Review of Systems Const Denies chills and Denies fever(s) ENT Denies epistaxis and Denies nasal discharge Card Denies chest pain Resp Denies chest congestion, Denies cough and Denies hemoptysis GI Denies diarrhea and Denies nausea Skin/Breast Denies rash Neuro Reports no additional complaints Psych Reports no additional complaints Endo Reports no additional complaints Physical exam (Primary Care) Vital Signs: Last Vital Signs Pulse 75 11/05/23 14:54 BP 138/76 11/05/23 14:54 Pulse Ox 96 11/05/23 14:54 Oxygen Delivery Method Room Air 11/05/23 14:54 BMI result Body Mass Index 38.0 Tobacco/Smoking Status: Tobacco use Status Tobacco use date assessed 11/05/23 11/05/23 14:57 Patient Tobacco Use Status Former Tobacco user 11/05/23 14:57 e-Cigarette/Vaping Use Never Used 11/05/23 14:57 PHQ-9: PHQ-9 Score PHQ-9: Total score 1 11/05/23 14:57 Depression Screening Interpretation: Negative Thrive Assessment: Date of Thrive Assessment Date Thrive assessed 11/05/23 11/05/23 14:57 Currently or been in a relationship where the following occur: no concerns reported Const General: cooperative, comfortable and no acute distress Orientation/consciousness: patient oriented x3 HENMT Head: Yes normocephalic Eyes General: appearance normal, both eyes and all related structures Neck Neck: Yes supple Resp Effort & Inspection: normal respiratory effort, no cough and no stridor Cardio Rhythm: regular rhythm Heart sounds: S1 normal heart sound present and S2 normal heart sound present Skin General skin exam: turgor normal Neuro General: patient oriented x3, tone normal and moves all extremities Extrem Right lower extremity: no edema Left lower extremity: no edema Assessment and Plan Assessment & Plan (1) Major depressive disorder, severe: Code(s): F32.2 - Major depressive disorder, single episode, severe without psychotic features (2) Anxiety disorder: Code(s): F41.9 - Anxiety disorder, unspecified Qualifiers: Anxiety disorder type: generalized anxiety disorder Qualified Code(s): F41.1 - Generalized anxiety disorder (3) Impaired fasting blood sugar: Code(s): R73.01 - Impaired fasting glucose (4) Lipid disorder: Code(s): E78.9 - Disorder of lipoprotein metabolism, unspecified (5) Bipolar disorder: Code(s): F31.9 - Bipolar disorder, unspecified Qualifiers: Active/Remission status: in full remission Most recent bipolar episode type: mixed Qualified Code(s): F31.78 - Bipolar disorder, in full remission, most recent episode mixed Plan Patient is a 53 year-old female this is a regular follow-up appointment Patient is doing well Need refill on her medications Moods are stable Patient is on Seroquel 100 mg And simvastatin 10 mg for lipid control She forgot to do the labs, patient says that she will do it this weekend Has appointment in January for physical examination Vital signs stable BMI is elevated need to lose weight Medications: Refilled simvastatin 10 mg PO DAILY 90 tabs 1RF 90 days quetiapine 100 mg PO BEDTIME 90 tabs 1RF Coding Level of Care Code Est Pt Level 3 (78655) Diagnoses Major depressive disorder, severe F32.2 Generalized anxiety disorder F41.1 Anxiety disorder type: generalized anxiety disorder Impaired fasting blood sugar R73.01 Lipid disorder E78.9 Bipolar disorder, in full remission, most recent episode mixed F31.78 Active/Remission status: in full remission Most recent bipolar episode type: mixed Additional Codes SKYLER-7 Assessment Billing - SKYLER-7 Assessment Tool: SKYLER-7 Assessment 26260 ([id number])
[2023-11-05 14:54] VITALS: BP 138/76; PULSE 75; O2SAT 96; BMI 38.0
== END 2023-11-05 15:25 | disposition home or self-care (01) ==
PROVIDERS: PCP Internal Medicine; Visit Provider Internal Medicine
DX: R73.01 Impaired fasting glucose (principal); F31.78 Bipolar disorder, in full remission, most recent episode mixed; F41.1 Generalized anxiety disorder; E78.9 Disorder of lipoprotein metabolism, unspecified
CPT/HCPCS: 99213

== ENCOUNTER 2023-11-26 08:13 | Outpatient (REF) | payer BC, SELFPAY ==
[2023-11-26 10:28] LABS: MANUAL DIFF FLAG NO
[2023-11-26 10:37] LABS: Basophils Absolute Auto 0.1 X10*3/uL (0.0-0.2); Basophils Percent Auto 0.8 % (0-2); Eosinophils Absolute Auto 0.2 X10*3/uL (0.0-0.4); Eosinophils Percent Auto 2.7 % (0-4); Hematocrit 41.4 % (37.0-47.0); Hemoglobin 13.9 g/dl (12.0-16.0); Imm Gran Abs Auto 0.03 X10*3/uL (0.00-0.03); Imm Gran Pct Auto 0.5 % (0.0-0.4); Lymphocytes Absolute Auto 1.8 X10*3/uL (1.2-4.9); Lymphocytes Percent Auto 27.4 % (20-40); Mean Corpuscular HGB Conc 33.6 g/dl (31.0-35.0); Mean Corpuscular Hemoglobin 31.8 pg (27.0-33.0); Mean Corpuscular Volume 94.7 fL (80.0-98.0); Monocytes Absolute Auto 0.5 X10*3/uL (0.1-1.2); Monocytes Percent Auto 7.6 % (2-11); Platelet Count 252 X10*3/uL (160-400); Red Blood Count 4.37 X10*6/uL (4.20-5.50); White Blood Count 6.6 X10*3/uL (4.8-10.8)
[2023-11-26 10:49] LABS: Alanine Aminotransferase 14 U/L (0-31); Albumin Level 4.2 g/dL (3.5-5.0); Alkaline Phosphatase 91 U/L (39-117); Anion Gap 13 (12-20); Aspartate Amino Transferase 15 U/L (5-31); Bilirubin Total 0.5 mg/dL (0.0-1.0); Blood Urea Nitrogen 16 mg/dL (9-16); Calcium 9.8 mg/dL (8.4-10.2); Carbon Dioxide 27 mmol/L (22-29); Chloride 106 mmol/L (96-108); Cholesterol 201 mg/dL (<200); Estimated Glomerular Filt Rate > 60; Glucose Fasting 83 mg/dL (60-99); HDL Cholesterol 67 mg/dL (>40); LDL Cholesterol Calculated 111 mg/dL (<100); Sodium 141 mmol/L (135-145); Total Protein 7.3 g/dL (6.5-8.0); Triglycerides 116 mg/dL (<150)
== END 2023-11-26 08:14 | disposition home or self-care (01) ==
LOC: HO.MAMMO 08:13
PROVIDERS: PCP Internal Medicine; Visit Provider Internal Medicine
DX: Z12.31 Encounter for screening mammogram for malignant neoplasm of breast (principal); F32.2 Major depressive disorder, single episode, severe without psychotic features; F41.9 Anxiety disorder, unspecified; R73.01 Impaired fasting glucose; E78.9 Disorder of lipoprotein metabolism, unspecified
CPT/HCPCS: 36415; 77063; 77067; 80053; 80061; 85025

== ENCOUNTER → 2023-11-26 14:30 | Outpatient (BNV) | payer BC, SELFPAY | PROVIDERS: PCP Internal Medicine; Visit Provider Radiology Diagnostic Radiology | DX: Z12.31 Encounter for screening mammogram for malignant neoplasm of breast (principal) | CPT/HCPCS: 77063; 77067 ==

== ENCOUNTER 2024-02-04 11:48 | Outpatient (AMB) | payer BC, SELFPAY ==
[2024-02-04 11:49] VITALS: BP 132/86; PULSE 68; O2SAT 98; BMI 36.4
--- NOTE | 2024-02-04 11:49 | MHC.PC.OV ---
Vital Signs 02/04/24 11:49 Height 5 ft 4 in Weight 212 lb 4 oz BMI 36.4 BP 132/86 Blood Pressure Location Rt brachial Position Sitting Pulse 68 Pulse Source Pulse Oximeter Pulse Oximetry (%) 98 Oxygen Delivery Method Room Air Intake Visit Reasons: PE - see comments Allergies paroxetine [Paxil] Adverse Reaction (Unknown, Verified 02/04/24 11:49) feels like I'm in a fog vicodin Adverse Reaction (Unknown, Uncoded 01/29/23 09:05) Gi upset Medication List - Last Reconciled 02/04/24 by Kaylin Oneill MD multivitamin (Daily Multi-Vitamin tablet) 1 tab PO DAILY omega 0-avk-anl-fish oil 60-90-500 mg (Fish Oil) 1 cap PO DAILY quetiapine 100 mg PO BEDTIME simvastatin 10 mg PO DAILY 90 days Tobacco use date assessed: 02/04/24 Dental Screening Dental Screen Date: 02/04/24 Did you have a dental visit in the last 12 months?: Yes Did you have a dental problem in the last 6 months where you did not have access to dental care?: No Was dental information given to patient?: Patient has dentist HPI PE - see comments HPI Details Patient is a 53-year-old female came in today for physical exam She is doing well with quetiapine, patient has a bipolar disorder Lipids are also controlled with simvastatin, both medication refills sent Labs to be repeated again in 4 months with follow-up appointment Mammogram was October of this year Patient says that she has a history of hysterectomy secondary to fibroid she was seeing Dr. Mace and he told her that there is no need for OBGYN visits anymore Colonoscopy was 2019, next 1 will be in 2029 She offers no other complaints today [facility] Medical History Bipolar disorder Iron deficiency anemia History of panic attacks Anxiety and depression History of alcohol abuse Surgical History Status post bariatric surgery Family History Other Substance use disorder Social History Household Members: Spouse Housing: House Alcohol intake: former Year quit: 2020 Patient Tobacco Use Status: Former Tobacco user e-Cigarette/Vaping Use: Never Used Second Hand Smoke Exposure: No service: No Current occupational status: unemployed Cognitive needs: No Hearing needs: No Vision needs: No Questionnaire PHQ-9 Over the last 2 weeks, how often have you been bothered by any of the following problems? 1. Little interest or pleasure in doing things: not at all 2. Feeling down, depressed, or hopeless: not at all 3. Trouble falling or staying asleep, or sleeping too much: not at all 4. Feeling tired or having little energy: not at all 5. Poor appetite or overeating: not at all 6. Feeling bad about yourself - or that you are a failure or have let yourself or your family down: not at all 7. Trouble concentrating on things, such as reading the newspaper or watching television: not at all 8. Moving or speaking so slowly that other people could have noticed. Or the opposite - being so fidgety or restless that you have been moving around a lot more than usual: not at all 9. Thoughts that you would be better off or of hurting yourself in some way: not at all Total score: 0 Depression Screening Interpretation: Negative Depression Screening Done: Yes 77726 - PHQ-9 Billing: Yes Source: Developed by Drs. Michael Stoner, Vanda Cedillo, Anatoliy Wilson and colleagues, with an educational rodri from [employer]. Thrive Questionnaire Date Thrive assessed: 02/04/24 I am a: Patient What is your living situation today?: I have a steady place to live Within the past 12 months, did the food you bought not last and you didn't have the money to get more?: Never true Within the past 12 months, did you worry whether your food would run out before you got money to buy more?: Never true Do you have trouble paying for medicines?: No Do you have trouble getting transportation to medical appointments?: No Do you have trouble paying your heating and electricity bill?: No Do you have trouble taking care of your child, family member or friend?: No Do you have trouble with day-to-day activities such as bathing, preparing meals, shopping, managing finances, etc.?: No Are you currently unemployed and looking for a job?: No Are you interested in more education?: No Please select the resources that you would like help with: Housing/Alf Currently or been in a relationship where the following occur: No concerns reported THRIVE Score: 0 AUDIT C Alcohol Use Questionnaire (AUDIT-C) 1. How often do you have a drink containing alcohol?: Never 3. How often do you have six or more drinks on one occasion?: Never Total Score: 0 Score Reviewed/Action Taken: No SKYLER-7 AMB Questionnaire SKYLER-7 Date SKYLER - 7 assessed: 02/04/24 Feeling nervous, anxious, or on edge: 0 = Not at all Not being able to stop or control worryin = Not at all Worrying too much about different things: 0 = Not at all Trouble relaxin = Not at all Being so restless that it is hard to sit still: 0 = Not at all Becoming easily annoyed or irritable: 0 = Not at all Feeling afraid as if something awful might happen: 0 = Not at all Total SKYLER-7 score (0-4 normal; 5-9 mild; 10-14 moderate; 15-21 severe): 0 Source: Developed by Drs. Michael Stoner, Vanda Cedillo, Anatoliy Wilson and colleagues, with an educational rodri from [employer]. SKYLER-7 Assessment Billing SKYLER-7 Assessment Tool: SKYLER-7 Assessment 13996 Review of Systems Const Denies chills, Denies fever(s) and Denies headache(s) Eyes Denies blurry vision ENT Denies headache(s), Denies nasal discharge, Denies nasal obstruction, Denies odynophagia and Denies sinus pain Card Denies chest pain at rest and Denies chest pain with activity Resp Denies cough and Denies hemoptysis GI Denies diarrhea, Denies odynophagia, Denies vomiting and Denies hematemesis Reports as per HPI Musc Denies abnormal gait Skin/Breast Reports as per HPI Neuro Denies Neuro-related abnormal movements, Denies Abnormal speech present, Denies abnormal gait, Denies headache(s) and Denies Sensory deficit (Neuro) Psych Denies mood swings and Denies paranoia Endo Reports as per HPI Matias/Lymph Reports as per HPI Aller/Immun Reports as per HPI Physical exam (Primary Care) Vital Signs: Last Vital Signs Pulse 68 08/06/24 11:49 BP 132/86 02/04/24 11:49 Pulse Ox 98 02/04/24 11:49 Oxygen Delivery Method Room Air 02/04/24 11:49 BMI result Body Mass Index 36.4 Tobacco/Smoking Status: Tobacco use Status Tobacco use date assessed 02/04/24 02/04/24 11:54 Patient Tobacco Use Status Former Tobacco user 02/04/24 11:54 e-Cigarette/Vaping Use Never Used 02/04/24 11:54 PHQ-9: PHQ-9 Score PHQ-9: Total score 0 02/04/24 12:21 Depression Screening Interpretation: Negative Thrive Assessment: Date of Thrive Assessment Date Thrive assessed 02/04/24 02/04/24 11:54 Currently or been in a relationship where the following occur: No concerns reported Const General: cooperative, comfortable and no acute distress Orientation/consciousness: patient oriented x3 HENMT Head: Yes normocephalic and Yes atraumatic Eyes General: appearance normal, both eyes and all related structures Pupils: Equal, round and reactive pupils present EOM: EOMs intact bilaterally Neck Neck: Yes supple and No lymphadenopathy Thyroid: Thyroid normal Lymphatic: no lymphadenopathy noted Resp Effort & Inspection: normal respiratory effort and able to speak in complete sentences Auscultation: clear to auscultation bilaterally Cardio Heart sounds: S1 normal heart sound present and S2 normal heart sound present GI Palpation (GI): Soft to palpation and nontender Auscultation: normal bowel sounds General: Yes no CVA tenderness Back/Spine/Pelvis Back: no CVA tenderness Skin General skin exam: elasticity normal and turgor normal Neuro General: patient oriented x3 and gait normal Cranial nerves: Yes Equal, round and reactive pupils present Speech: No Abnormal speech present Sensory Exam: No Sensory deficit (Neuro) Coordination: tandem gait normal and Romberg test negative Extrem General: Yes normal exam except as noted and No edema Assessment and Plan Assessment & Plan (1) Annual physical exam: Code(s): Z00.00 - Encounter for general adult medical examination without abnormal findings (2) Bipolar disorder: Code(s): F31.9 - Bipolar disorder, unspecified Qualifiers: Active/Remission status: in full remission Most recent bipolar episode type: mixed Qualified Code(s): F31.78 - Bipolar disorder, in full remission, most recent episode mixed (3) Lipid disorder: Code(s): E78.9 - Disorder of lipoprotein metabolism, unspecified (4) Impaired fasting blood sugar: Code(s): R73.01 - Impaired fasting glucose (5) Obesity due to excess calories: Code(s): E66.09 - Other obesity due to excess calories Qualifiers: Body mass index: BMI 36.0-36.9 Obesity classification: adult class 2 (BMI 35 - 39.9) Serious obesity comorbidity presence: with serious comorbidity Qualified Code(s): E66.01 - Morbid (severe) obesity due to excess calories; Z68.36 - Body mass index [BMI] 36.0-36.9, adult Plan Patient is a 53-year-old female came in today for physical exam She is doing well with quetiapine, patient has a bipolar disorder Lipids are also controlled with simvastatin, both medication refills sent Labs to be repeated again in 4 months with follow-up appointment Mammogram was October of this year Patient says that she has a history of hysterectomy secondary to fibroid she was seeing Dr. Mace and he told her that there is no need for OBGYN visits anymore Colonoscopy was 2020, next 1 will be in 2030 She offers no other complaints today Orders: Orders Complete Blood Count Auto Diff Today E66.09 - Other obesity due to excess calories, E78.9 - Disorder of lipoprotein metabolism, unspecified, F31.78 - Bipolar disorder, in full remission, most recent episode mixed, R73.01 - Impaired fasting glucose, Z00.01 - Encounter for general adult medical examination with abnormal findings Comprehensive Met. Panel Today E66.09 - Other obesity due to excess calories, E78.9 - Disorder of lipoprotein metabolism, unspecified, F31.78 - Bipolar disorder, in full remission, most recent episode mixed, R73.01 - Impaired fasting glucose, Z00.01 - Encounter for general adult medical examination with abnormal findings Hemoglobin A1c Today R73.01 - Impaired fasting glucose Medications: Refilled simvastatin 10 mg PO DAILY 90 tabs 1RF 90 days quetiapine 100 mg PO BEDTIME 90 tabs 1RF Coding Level of Care Code Est Pt Prev Care 40-64y(34816) Diagnoses Annual physical exam Z00.00 Bipolar disorder, in full remission, most recent episode mixed F31.78 Active/Remission status: in full remission Most recent bipolar episode type: mixed Lipid disorder E78.9 Impaired fasting blood sugar R73.01 Class 2 severe obesity due to excess calories with serious comorbidity and body mass index (BMI) of 36.0 to 36.9 in adult E66.01; Z68.36 Body mass index: BMI 36.0-36.9 Obesity classification: adult class 2 (BMI 35 - 39.9) Serious obesity comorbidity presence: with serious comorbidity Additional Codes SKYLER-7 Assessment Billing - SKYLER-7 Assessment Tool: SKYLER-7 Assessment 49649 ([id number])
== END 2024-02-04 12:22 | disposition home or self-care (01) ==
PROVIDERS: PCP Internal Medicine; Visit Provider Internal Medicine
DX: Z00.00 Encounter for general adult medical examination without abnormal findings (principal); F31.78 Bipolar disorder, in full remission, most recent episode mixed; E66.01 Morbid (severe) obesity due to excess calories; Z68.36 Body mass index [BMI] 36.0-36.9, adult; E78.9 Disorder of lipoprotein metabolism, unspecified; R73.01 Impaired fasting glucose
CPT/HCPCS: 99396

== ENCOUNTER 2024-12-08 08:51 | Outpatient (REF) | payer BC, SELFPAY ==
--- OUTSIDE RECORDS SUMMARY | 2024-12-08 09:19 | XMS_ITS | Clinical Summary ---
Author Organization [facility] Address [address] [place] [address] Care Team Providers Care Oil Agent Name Role Phone Unavailable Primary Care Provider Unavailabl e Social History Tobacco Use Types Packs/Day Years Used Date Smoking Tobacco: Never Assessed Comments Unknown Sex and Gender Information Value Date Recorded Sex Assigned at Not on file Legal Sex Female 1:07 PM EST Gender Identity Not on file Sexual Orientation Not on file Plan of Treatment Health Maintenance Due Date Last Done Comments Breast Cancer Screening 1969 DTaP,Tdap,and Td Vaccines (1 - Tdap) 1988 Hepatitis B Vaccines (1 of 3 - 19+ 3-dose series) 1988 Cervical Cancer Screening: P ap Smear 1990 Pneumococcal Vaccine: 50+ Ye ars (1 of 1 - PCV) 2019 Zoster Vaccines (1 of 2) 2019 COVID-19 Vaccine ( - 2023-2 5 season) 2024 Influenza Vaccine (Season Ended) 2025 HIB Vaccines Aged Out No longer eligi ble based on patient's age to complete this topic HPV Vaccines Aged Out No longer eligi ble based on patient's age to complete this topic Hepatitis A Vaccines Aged Out No long er eligible based on patient's age to complete this topic IPV Vaccines Aged Out No longer eligi ble based on patient's age to complete this topic MMR Vaccines Aged Out No longer eligi ble based on patient's age to complete this topic Meningococcal ACWY Vaccine Aged Out N o longer eligible based on patient's age to complete this topic Meningococcal B Vaccine Aged Out No l onger eligible based on patient's age to complete this topic Pneumococcal Vaccine: Pediat rics (0 to 5 Years) and At-Risk Patients (6 to 64 Years) Aged Out No longer eligible b ased on patient's age to complete this topic RSV Immunization Patients Un kenny 20 months Aged Out No longer eligible b ased on patient's age to complete this topic Varicella Vaccines Aged Out No longer eligible based on patient's age to complete this topic
== END 2024-12-08 08:52 | disposition home or self-care (01) ==
LOC: HO.MAMMO 08:51
PROVIDERS: PCP Internal Medicine; Visit Provider Internal Medicine
DX: Z12.31 Encounter for screening mammogram for malignant neoplasm of breast (principal)
CPT/HCPCS: 77063; 77067

== ENCOUNTER → 2024-12-08 09:00 | Outpatient (BNV) | payer BC, SELFPAY | PROVIDERS: PCP Internal Medicine; Visit Provider Internal Medicine | DX: Z12.31 Encounter for screening mammogram for malignant neoplasm of breast (principal) | CPT/HCPCS: 77063; 77067 ==

== ENCOUNTER 2025-02-23 09:07 | Outpatient (AMB) | payer BC, SELFPAY ==
[2025-02-23 09:12] VITALS: BP 126/84; PULSE 72; RESP 16; O2SAT 98; BMI 31.1
--- NOTE | 2025-02-23 09:12 | A.OFFPC_ITS ---
Vital Signs 02/23/25 09:12 Height 5 ft 4 in Weight 181 lb BMI 31.1 BP 126/84 Blood Pressure Location Lt brachial Position Sitting Respiration 16 Pulse 72 Pulse Source Pulse Oximeter Pulse Oximetry (%) 98 Oxygen Delivery Method Room Air Intake Visit Reasons: ANNUAL EXAM Brake Adjuster Required: No Accompanied by: Self / Same As Patient Allergies paroxetine (Paxil) Adverse Reaction (Unknown, Verified 02/23/25 09:19) feels like I'm in a fog vicodin Adverse Reaction (Unknown, Uncoded 01/29/23 09:05) Gi upset Medication List - Last Reconciled 02/23/25 by Kaylin Oneill MD biotin 1 mg PO DAILY multivitamin (Daily Multi-Vitamin tablet) 1 tab PO DAILY omega 5-ygd-dty-fish oil 60-90-500 mg (Fish Oil) 1 cap PO DAILY quetiapine 100 mg PO BEDTIME simvastatin 10 mg PO DAILY 90 days Tobacco use date assessed: 02/23/25 Dental Screening Dental Screen Date: 02/23/25 Did you have a dental visit in the last 12 months?: Yes Did you have a dental problem in the last 6 months where you did not have access to dental care?: No Was dental information given to patient?: Patient has dentist HPI ANNUAL EXAM HPI Details History of Present Illness The patient is a 54 year old female came in for PE, has been having mild dizziness off and on while walking has H/o Bipolar disorder Vertigo: - Describes feeling off balance occasion ally while walking. - Symptoms have been present for the las t six to eight months, occurring intermittently. - Previous severe episode of vertigo in her 20s. - No daily occurrence; episodes are infr equent. Possible Breast Lump: - New finding noted during a physical ex amination. - Located in the left breast at approxim ately the 1 o'clock position. - No prior history of a breast lump. - Recent mammogram in October was reported a s normal. Medical History: - Acute Appendicitis with Localized Ramya tonitis (November 2024) was admitted [facility] had surgery - Vertigo (intermittent) - History of Fibroids s/p hystrectomy Surgical History: - Appendectomy (November 2024) - Hysterectomy Social History: - Reports possible winter allergies caus ing ear itching. - No allergies to medications. - Adopted by her father, with unclear [facility] medical history. - Stressors include family health issues . Family History: - Isggyup-mo-gll diagnosed with stage 4 esophageal cancer. - No known family history of breast canc er. - Limited family history details availab le due to adoption. Health Maintenance - Colonoscopy completed in March 2021, next due in 2029. - Recent mammogram in October, results were normal. - Regular monitoring for cholesterol; la st LDL was 111. - On Simvastatin for hyperlipidemia. Medications - Simvastatin 10 mg for hyperlipidemia - Quetiapine 100 mg at bedtime for unspe cified indication Patient Instructions - Continue current medications including Simvastatin and Quetiapine. - administrative support coordinator Meclizine for vertigo if sympt oms worsen. - Apply medicated powder to fungal infec tion in skin folds. Tinea corporis lower abdomen - Await call for ultrasound and diagnost ic mammogram appointment. - need visit every three-month due to hi gh dose of quetiapine prescription Review of Systems - General: No fever no chills - Neurological: No headaches no dizzin ess - Ear nose throat: No sore throat no hearing difficulty no ear pain - Cardiovascular: No syncope, no chest pain, no palpitations - Gastrointestinal: No nausea vomiting or diarrhea - Endocrine: No polyuria polydipsia no heat intolerance - Genitourinary: No dysuria - Skin: No new complaints Physical Exam General: Cooperative, healthy appearing, comfortable, no acute distress Orientation: Patient oriented x3 Head: Normal to inspection Ears: Within normal limit visually, slight itching inside during winter Nose: Normal external nose present Face and sinus: Normal facial exam Eyes: Appearance normal, extraocular movement intact pupils reactive Neck: Normal visual inspection and supple Respiratory: Normal respiratory effort and able to speak in complete sentences. Clear to auscultation, no stridor Cardiovascular: S1 and S2 RRR Breast exam revealed lump left breast 1 o'clock position size of half an inch to 1 in nontender GI: Normal to inspection. Soft to palpation and nontender Skin: Turgor normal, no acute findings, slight fungal infection in skin fold Neuro: Patient oriented x3, motor sensory intact, balance slightly off with occasional dizziness while walking, tandem walk shows a little bit of problem Extremities: Normal to inspection [facility] Medical History Bipolar disorder Iron deficiency anemia History of panic attacks Anxiety and depression History of alcohol abuse Surgical History Status post bariatric surgery Family History Other Substance use disorder Social History Household Members: Spouse Housing: House Alcohol intake: former Year quit: 2020 Patient Tobacco Use Status: Former Tobacco user e-Cigarette/Vaping Use: Never Used Second Hand Smoke Exposure: No service: No Current occupational status: unemployed Cognitive needs: No Hearing needs: No Vision needs: No Questionnaire PHQ-9 Over the last 2 weeks, how often have you been bothered by any of the following problems? 1. Little interest or pleasure in doing things: not at all 2. Feeling down, depressed, or hopeless: not at all 3. Trouble falling or staying asleep, or sleeping too much: not at all 4. Feeling tired or having little energy: not at all 5. Poor appetite or overeating: not at all 6. Feeling bad about yourself - or that you are a failure or have let yourself or your family down: not at all 7. Trouble concentrating on things, such as reading the newspaper or watching television: not at all 8. Moving or speaking so slowly that other people could have noticed. Or the opposite - being so fidgety or restless that you have been moving around a lot more than usual: not at all 9. Thoughts that you would be better off or of hurting yourself in some way: not at all Total score: 0 Depression Screening Interpretation: Negative Depression Screening Done: Yes 51544 - PHQ-9 Billing: Yes Source: Developed by Drs. Michael Stoner, Vanda Cedillo, Anatoliy Wilson and colleagues, with an educational rodri from [employer]. Thrive Questionnaire Date Thrive assessed: 02/17/25 I am a: Patient What is your living situation today?: I have a steady place to live Within the past 12 months, did the food you bought not last and you didn't have the money to get more?: Never true Within the past 12 months, did you worry whether your food would run out before you got money to buy more?: Never true Do you have trouble paying for medicines?: No Do you have trouble getting transportation to medical appointments?: No Do you have trouble paying your heating and electricity bill?: No Do you have trouble taking care of your child, family member or friend?: No Do you have trouble with day-to-day activities such as bathing, preparing meals, shopping, managing finances, etc.?: No Are you currently unemployed and looking for a job?: No Are you interested in more education?: No Please select the resources that you would like help with: None Currently or been in a relationship where the following occur: No concerns reported THRIVE Score: 0 AUDIT C Alcohol Use Questionnaire (AUDIT-C) 1. How often do you have a drink containing alcohol?: Never 3. How often do you have six or more drinks on one occasion?: Never Total Score: 0 Score Reviewed/Action Taken: Yes SKYLER-7 AMB Questionnaire SKYLER-7 Date SKYLER - 7 assessed: 02/23/25 Feeling nervous, anxious, or on edge: 0 = Not at all Not being able to stop or control worryin = Not at all Worrying too much about different things: 0 = Not at all Trouble relaxin = Not at all Being so restless that it is hard to sit still: 0 = Not at all Becoming easily annoyed or irritable: 0 = Not at all Feeling afraid as if something awful might happen: 0 = Not at all Total SKYLER-7 score (0-4 normal; 5-9 mild; 10-14 moderate; 15-21 severe): 0 Source: Developed by Drs. Michael Stoner, Vanda Cedillo, Anatoliy Wilson and colleagues, with an educational rodri from [employer]. SKYLER-7 Assessment Billing SKYLER-7 Assessment Tool: SKYLER-7 Assessment 41776 Physical exam (Primary Care) Vital Signs: Last Vital Signs Pulse 72 02/23/25 09:12 Resp 16 02/23/25 09:12 BP 126/84 02/23/25 09:12 Pulse Ox 98 02/23/25 09:12 Oxygen Delivery Method Room Air 02/23/25 09:12 BMI result Body Mass Index 31.1 Tobacco/Smoking Status: Tobacco use Status Tobacco use date assessed 02/23/25 02/23/25 09:20 Patient Tobacco Use Status Former Tobacco user 02/23/25 09:13 e-Cigarette/Vaping Use Never Used 02/23/25 09:13 PHQ-9: PHQ-9 Score PHQ-9: Total score 0 02/23/25 09:19 Depression Screening Interpretation: Negative Thrive Assessment: Date of Thrive Assessment Date Thrive assessed 02/17/25 02/23/25 09:13 Currently or been in a relationship where the following occur: No concerns reported Coding Level of Care Code Est Pt Level 3 (02757) Est Pt Prev Care 40-64y(09355) Diagnoses Encounter for general adult medical examination with abnormal findings Z00.01 Breast lump on left side at 1 o'clock position N63.21 Class 2 severe obesity due to excess calories with serious comorbidity and body mass index (BMI) of 36.0 to 36.9 in adult E66.01; Z68.36 Obesity classification: adult class 2 (BMI 35 - 39.9) Serious obesity comorbidity presence: with serious comorbidity Body mass index: BMI 36.0-36.9 Impaired fasting blood sugar R73.01 Lipid disorder E78.9 Bipolar disorder, in full remission, most recent episode mixed F31.78 Active/Remission status: in full remission Most recent bipolar episode type: mixed Major depressive disorder, severe F32.2 Additional Codes SKYLER-7 Assessment Billing - SKYLER-7 Assessment Tool: KSYLER-7 Assessment 91215 ([id number]) PHQ-9 - 00407 - PHQ-9 Billing: Yes ([id number]) Assessment & Plan Assessment & Plan (1) Encounter for general adult medical examination with abnormal findings: Code(s): Z00.01 - Encounter for general adult medical examination with abnormal findings Category: Medical (2) Breast lump on left side at 1 o'clock position: Code(s): N63.21 - Unspecified lump in the left breast, upper outer quadrant Category: Medical (3) Obesity due to excess calories: Code(s): E66.09 - Other obesity due to excess calories Category: Medical Qualifiers: Obesity classification: adult class 2 (BMI 35 - 39.9) Serious obesity comorbidity presence: with serious comorbidity Body mass index: BMI 36.0-36.9 Qualified Code(s): E66.01 - Morbid (severe) obesity due to excess calories; Z68.36 - Body mass index [BMI] 36.0-36.9, adult (4) Impaired fasting blood sugar: Code(s): R73.01 - Impaired fasting glucose Category: Medical (5) Lipid disorder: Code(s): E78.9 - Disorder of lipoprotein metabolism, unspecified Category: Medical (6) Bipolar disorder: Code(s): F31.9 - Bipolar disorder, unspecified Category: Medical Qualifiers: Active/Remission status: in full remission Most recent bipolar episode type: mixed Qualified Code(s): F31.78 - Bipolar disorder, in full remission, most recent episode mixed (7) Major depressive disorder, severe: Code(s): F32.2 - Major depressive disorder, single episode, severe without psychotic features Category: Medical Plan History of Present Illness The patient is a 54 year old female came in for PE, has been having mild dizziness off and on while walking has H/o Bipolar disorder Vertigo: - Describes feeling off balance occasionally while walking. - Symptoms have been present for the last six to eight months, occurring intermittently. - Previous severe episode of vertigo in her 20s. - No daily occurrence; episodes are infrequent. Possible Breast Lump: - New finding noted during a physical examination. - Located in the left breast at approximately the 1 o'clock position. - No prior history of a breast lump. - Recent mammogram in October was reported as normal. Medical History: - Acute Appendicitis with Localized Peritonitis (November 2024) was admitted [facility] had surgery - Vertigo (intermittent) - History of Fibroids s/p hystrectomy Surgical History: - Appendectomy (November 2024) - Hysterectomy Social History: - Reports possible winter allergies causing ear itching. - No allergies to medications. - Adopted by her father, with unclear family medical history. - Stressors include family health issues. Family History: - Dikxuuh-pu-arw diagnosed with stage 4 esophageal cancer. - No known family history of breast cancer. - Limited family history details available due to adoption. Health Maintenance - Colonoscopy completed in March 2021, next due in 2029. - Recent mammogram in October, results were normal. - Regular monitoring for cholesterol; last LDL was 111. - On Simvastatin for hyperlipidemia. Medications - Simvastatin 10 mg for hyperlipidemia - Quetiapine 100 mg at bedtime for unspecified indication Patient Instructions - Continue current medications including Simvastatin and Quetiapine. - administrative support coordinator Meclizine for vertigo if symptoms worsen. - Apply medicated powder to fungal infection in skin folds. Tinea corporis lower abdomen - Await call for ultrasound and diagnostic mammogram appointment. - need visit every three-month due to high dose of quetiapine prescription Orders: Orders US breast LT complete Today N63.21 - Unspecified lump in the left breast, upper outer quadrant MM tomosynthesis diagnostic LT Today N63.21 - Unspecified lump in the left breast, upper outer quadrant Medications: New nystatin 1 appl topical DAILY 60 grams 2RF 30 days B35.4 - Tinea corporis
--- OUTSIDE RECORDS SUMMARY | 2025-02-23 09:29 | XMS_ITS | Clinical Summary ---
Author Organization [facility] Address [address] [place] [address] Phone Care Team Providers Care Caster Helper Name Role Phone Kaylin Oneill MD Primary Care Provider [phone] Allergies No known active allergies Medications QUEtiapine (SEROquel) 100 mg tablet Take 0.5 tablets (50 mg total) by mouth at bedtime. at bedtime. 5 Active simvastatin (ZOCOR) 10 mg tablet Take 1 tablet (10 mg total) by mouth 1 (one) time each day. 5 Active Zepbound 10 mg/0.5 mL injection Inject 0.5 mL (10 mg total) under the skin every 7 (seven) days. 5 Active oxyCODONE (ROXICODONE) 5 mg immediate release tablet Take 1 tablet (5 mg total) by mouth every 4 (four) hours if needed for severe pain. Max Daily Amount: 30 mg 12 tablet 5 Active Additional Information Patient not taking.Reported on 01/13/2025 Active Problems Problem Noted Date Diagnosed Date Acute appendicitis with loca lized peritonitis without gangrene 12/23/2024 Resolved Problems Problem Noted Date Diagnosed Date Resolved Date Acute appendicitis, unspecif ied acute appendicitis type 12/25/2024 12/30/2024 Acute appendicitis 12/24/2024 Encounters Date Type Department Care Team Description 01/20/2025 10:45 AM EDT Office Visit General Surgery [facility] [address] [address] Ranjit Mcdonald, DO S/P appendectomy, follow-up exam (Primary Dx) 01/13/2025 11:15 AM EDT Office Visit General Surgery - [place] [address] [address] Ranjit Mcdonald, DO S/P appendectomy, follow-up exam (Primary Dx) 12/24/2024 9:30 AM EDT - 12/24/2024 11:00 AM EDT Surgery [facility] Main OR [address] [place] [address] Pearl Lee MD APPENDECTOMY LAPAROSCOPIC [99907 (CPT )] 12/24/2024 9:15 AM EDT Anesthesia Event [facility] OR [address] [place] [address] Catrachito Mesa DO 12/23/2024 11:45 PM EDT - 12/31/2024 2:51 PM EDT Hospital Encounter [facility] Urology Unit [address] [place] [address] Pearl Lee MD McPartland, Kenneth, MD Acute appendicitis with localized peritonitis without gangrene, unspecified whether abscess present, unspecified whether perforation present (Primary Dx); Acute appendicitis, unspecified acute appendicitis type Discharge Disposition: Alf Facility from Last 3 Months Surgical History Surgery Date Site/Laterality Comments APPENDECTOMY Medical History Medical History Date Comments Bipolar 1 disorder (CMS/HCC V24, CMS/HCC V28) High cholesterol Social History Tobacco Use Types Packs/Day Years Used Date Smoking Tobacco: Former Cigarettes Smokeless Tobacco: Never Tobacco Cessation:Counseling Given: Not Answered Alcohol Use Standard Drinks/Week Comments Never 0 (1 standard drink = 0.6 oz pur e alcohol) Interpersonal Safety Answer Date Record ed Physical Abuse 12/24/2024 Verbal Abuse 12/24/2024 Comments Unknown Sex and Gender Information Value Date Recorded Sex Assigned at Not on file Legal Sex Female 1:07 PM EST Gender Identity Not on file Sexual Orientation Not on file Obstetrics History Last Filed Vital Signs Vital Sign Reading Time Taken Comments Blood Pressure 113/78 01/20/2025 10:36 AM EDT Pulse 73 01/20/2025 10:36 AM EDT Temperature 36.6 C (97.8 F) 01/13/2025 10:47 AM EDT Respiratory Rate 16 12/31/2024 7:45 AM EDT Oxygen Saturation 98% 12/31/2024 7:45 AM EDT Inhaled Oxygen Concentration - - Weight 83.7 kg (184 lb 8.4 oz) 01/20/2025 10:36 AM EDT Height 162.6 cm (5' 4 ) 01/20/2025 10:36 AM EDT Body Mass Index 31.67 01/20/2025 10:36 AM EDT Plan of Treatment Health Maintenance Due Date Last Done Comments Breast Cancer Screening 1969 DTaP,Tdap,and Td Vaccines (1 - Tdap) 1988 Hepatitis B Vaccines (1 of 3 - 19+ 3-dose series) 1988 Cervical Cancer Screening: P ap Smear 1990 Pneumococcal Vaccine: 50+ Ye ars (1 of 1 - PCV) 2019 Zoster Vaccines (1 of 2) 2019 COVID-19 Vaccine (1 - 2023-2 5 season) 2024 Depression Screening 07/01/2024 Colorectal Cancer Screening: Colonoscopy 12/24/2024 HIV Screening 12/24/2024 Hepatitis C Screening 12/24/2024 Social Influencers of Health Screening 12/24/2024 Influenza Vaccine (#1) 2025 HIB Vaccines Aged Out No longer [...] on patient's age to complete this topic Procedures Procedure Name Priority Date/Time Associated Diagnosis Comments CBC WITH AUTO DIFFERENTIAL Routine 01/20/2025 11:02 AM EDT S/P appendectomy, follow-up exam BASIC METABOLIC PANEL Routine 01/20/2025 11:02 AM EDT S/P appendectomy, follow-up exam CBC AND DIFFERENTIAL Routine 01/20/2025 11:02 AM EDT S/P appendectomy, follow-up exam CULTURE ABSCESS WITH GRAM STAIN STAT 12/29/2024 9:42 AM EDT CULTURE ABSCESS WITH GRAM STAIN STAT 12/29/2024 9:42 AM EDT IR DRAIN FLUID CATH PERIT/RETRO PERC Routine 12/29/2024 9:36 AM EDT MANUAL DIFFERENTIAL - SYSMEX WAM Routine 12/29/2024 5:50 AM EDT CBC WITH AUTO DIFFERENTIAL Routine 12/29/2024 5:50 AM EDT PHOSPHORUS Routine 12/29/2024 5:50 AM EDT MAGNESIUM Routine 12/29/2024 5:50 AM EDT BASIC METABOLIC PANEL Routine 12/29/2024 5:50 AM EDT CBC AND DIFFERENTIAL Routine 12/29/2024 5:[address] ABDOMEN PELVIS W CONTRAST STAT 12/28/2024 11:48 AM EDT CBC WITH AUTO DIFFERENTIAL Routine 12/28/2024 5:44 AM EDT BASIC METABOLIC PANEL Routine 12/28/2024 5:44 AM EDT CBC AND DIFFERENTIAL Routine 12/28/2024 5:44 AM EDT SST - GOLD Routine 12/27/2024 7:16 AM EDT EXTRA TUBES Routine 12/27/2024 7:16 AM EDT CBC WITH AUTO DIFFERENTIAL Routine 12/27/2024 7:16 AM EDT CBC AND DIFFERENTIAL Routine 12/27/2024 7:16 AM EDT CULTURE BLOOD Routine 12/26/2024 8:20 AM EDT CBC WITH AUTO DIFFERENTIAL Routine 12/26/2024 6:43 AM EDT MAGNESIUM Routine 12/26/2024 6:43 AM EDT CBC AND DIFFERENTIAL Routine 12/26/2024 6:43 AM EDT BASIC METABOLIC PANEL Routine 12/26/2024 6:43 AM EDT CULTURE BLOOD Routine 12/26/2024 6:43 AM EDT ECG ANNOTATED 12/26/2024 CBC WITH AUTO DIFFERENTIAL STAT 12/25/2024 2:36 AM EDT PHOSPHORUS Routine 12/25/2024 2:36 AM EDT MAGNESIUM Routine 12/25/2024 2:36 AM EDT CBC AND DIFFERENTIAL Routine 12/25/2024 2:36 AM EDT BASIC METABOLIC PANEL Routine 12/25/2024 2:36 AM EDT OXYGEN THERAPY, ADULT Routine 12/24/2024 10:59 AM EDT TISSUE EXAM Routine 12/24/2024 10:01 AM EDT Acute appendicitis with localized peritonitis without gangrene, unspecified whether abscess present, unspecified whether perforation present TH AN ENDOTRACHEAL(NO CHARGE) Routine 12/24/2024 9:44 AM EDT HI LAPAROSCOPY SURGICAL APPENDECTOMY 12/24/2024 9:20 AM EDT Acute appendicitis with localized peritonitis without gangrene, unspecified whether abscess present, unspecified whether perforation present HCG, SERUM, QUALITATIVE STAT 12/24/2024 7:50 AM EDT CBC WITH AUTO DIFFERENTIAL Routine 12/24/2024 4:32 AM EDT PROTHROMBIN TIME WITH INR Routine 12/24/2024 4:32 AM EDT CBC AND DIFFERENTIAL Routine 12/24/2024 4:32 AM EDT BASIC METABOLIC PANEL Routine 12/24/2024 4:[address] ABDOMEN PELVIS W CONTRAST STAT 12/24/2024 12:55 AM EDT LACTATE, WITH REFLEX STAT 12/24/2024 12:19 AM EDT BLOOD CULTURE PATHOGENS BY PCR Routine 12/24/2024 12:19 AM EDT CULTURE BLOOD STAT 12/24/2024 12:19 AM EDT CULTURE BLOOD STAT 12/24/2024 12:19 AM EDT ECG 12-LEAD STAT 12/23/2024 11:18 PM EDT FITCH URINE CULTURE TUBE STAT 12/23/2024 7:22 PM EDT URINALYSIS WITH REFLEX MICROSCOPIC AND CULTURE STAT 12/23/2024 7:22 PM EDT URINALYSIS WITH REFLEX MICROSCOPIC AND CULTURE STAT 12/23/2024 7:22 PM EDT CULTURE URINE STAT 12/23/2024 7:22 PM EDT CBC WITH AUTO DIFFERENTIAL STAT 12/23/2024 4:35 PM EDT COMPREHENSIVE METABOLIC PANEL STAT 12/23/2024 4:35 PM EDT CBC AND DIFFERENTIAL STAT 12/23/2024 4:35 PM EDT from Last 3 Months Results * CBC auto differential (01/20/2025 11:02 AM EDT) Only the most recent of8 resultswithin the time period is included. [facility] WBC 6.3 4.8 - 10.8 K/mcL LAB HEMETOLOGY METHOD 01/20/2025 12:[address] [facility] RBC 3.90 3.80 - 4.80 M/mcL LAB HEMETOLOGY METHOD 01/20/2025 12:[address] [facility] Hemoglobin 12.0 11.5 - 16.0 g/dL LAB HEMETOLOGY METHOD 01/20/2025 12:[address] [facility] Hematocrit 36.8 35.0 - 47.0 % LAB HEMETOLOGY METHOD 01/20/2025 12:[address] [facility] MCV 95.1 79.0 - 98.0 FL LAB HEMETOLOGY METHOD 01/20/2025 12:[address] [facility] MCH 31.0 27.0 - 32.0 pcg LAB HEMETOLOGY METHOD 01/20/2025 12:[address] [facility] MCHC 32.6 32.0 - 37.0 g/dL LAB HEMETOLOGY METHOD 01/20/2025 12:[address] [facility] RDW 13.4 11.0 - 15.0 % LAB HEMETOLOGY METHOD 01/20/2025 12:[address] [facility] Platelets 237 130 - 400 K/mcL LAB HEMETOLOGY METHOD 01/20/2025 12:[address] [facility] MPV 9.9 7.0 - 11.0 FL LAB [facility]ETOLOGY [facility] NRBC 0.0 <1.0 % [facility]EMETOLOGY [facility] NRBC Absolute 0.00 <0.10 K/mcL LAB HEMETOLOGY METHOD 01/20[facility]2025 [facility] Neutrophils Relative 67.1 % LAB HEMETOLOGY METHOD 01/20/2025 12:10 PM [facility] Lymphocytes Relative 20.5 % LAB HEMETOLOGY METHOD 01/20/2025 12:10 PM [facility] Monocytes Relative 8.5 % LAB HEMETOLOGY METHOD 01/20/2025 12:10 PM [facility] Eosinophils Relative 2.8 % LAB HEMETOLOGY METHOD 01/20/2025 12:10 PM [facility] Basophils Relative 0.8 % LAB HEMETOLOGY METHOD 01/20/2025 12:10 PM [facility] Immature Granulocytes Relative 0.3 % LAB HEMETOLOGY METHOD 01/20/2025 12:10 PM [facility] Neutrophils Absolute 4.24 1.50 - 7.00 K/mcL LAB HEMETOLOGY METHOD 01/20[facility] Lymphocytes Absolute 1.30 1.00 - 5.00 K/mcL LAB HEMETOLOGY METHOD 01/20[facility]2025 [facility] Monocytes Absolute 0.54 0.20 - 1.00 K/mcL LAB HEMETOLOGY METHOD 01/20/2025 12:10 PM [facility] Eosinophils Absolute 0.18 0.00 - 0.50 K/mcL LAB HEMETOLOGY METHOD 01/20/2025 12:[address] [facility] Basophils Absolute 0.05 0.00 - 0.20 K/[facility] LAB HEMETOLOGY METHOD 01/20/2025 12:[address] [facility] Immature Granulocytes Absolute 0.02 0.00 - 0.03 K/[facility] 01/20/2025 12:[address] [facility] Blood Venous blood specimen / Unknown Venipuncture / Unknown 01/20/2025 11:02 AM EDT 01/20/2025 11:38 AM EDT us Ranjit Mcdonald DO LAB BLOOD ORDERABLES Final Res ult [facility] [address] [place] [address], * Basic metabolic panel (01/20/2025 11:02 AM EDT) Only the most recent of6 resultswithin the time period is included. Sodium 138 133 - 145 mmol/L LAB CHEMISTRY METHOD 01/20/2025 12:52 PM [facility] Potassium 3.9 3.5 - 5.5 mmol/L LAB CHEMISTRY METHOD 01/20/2025 12:52 PM [facility] Chloride 106 96 - 110 mmol/L LAB CHEMISTRY METHOD 01/20/2025 12:52 PM [facility] CO2 27 21 - 32 mmol/L LAB CHEMISTRY METHOD 01/20/2025 12:52 PM [facility] Anion Gap 5 3 - 11 LAB CHEMISTRY METHOD 01/20/2025 12:52 PM [facility] Glucose 87 70 - 100 mg/dL LAB CHEMISTRY METHOD 01/20/2025 12:52 PM [facility] BUN 15 5 - 25 mg/dL LAB CHEMISTRY METHOD 01/20/2025 12:[address] [facility] Creatinine 0.69 0.50 - 1.10 mg/dL LAB CHEMISTRY METHOD 01/20/2025 12:[address] [facility] eGFR 103 >=60 mL/min/1. 73m2 LAB CHEMISTRY METHOD 01/20/2025 12:[address] [facility] Comment:Calculation based on the Chronic Kidney Disease Epidemiology Collaboration (CKD-EPI) equation refit without adjustment for race. BUN/Creatinine Ratio 21.7 LAB CHEMISTRY METHOD 01/20/2025 12:[address] [facility] Calcium 9.2 8.5 - 10.5 mg/dL LAB CHEMISTRY METHOD 01/20/2025 12:[address] [facility] Blood Venous blood specimen / Unknown Venipuncture / Unknown 01/20/2025 11:02 AM EDT 01/20/2025 11:43 AM EDT us Ranjit Mcdonald DO LAB BLOOD ORDERABLES Final Res ult [facility] [address] [place] [address], * (ABNORMAL) Culture abscess with gram stain (12/29/2024 9:42 AM EDT) Only the most recent of2 resultswithin the time period is included. CULTURE, ABSCESS Growth in broth media only Pseudomonas aeruginosa(A) TOBY 01/02/2025 8:[address] [facility] Comment: The organism value for this result has been updated. These results have been appended to the previously preliminary verified report. This is an edited result. Previous organism was Gram negative bacilli on 01/01/2025 at 0857 EDT. Gram Stain Result No polymorphonuclear leukocytes, No epithelial cells, and No organisms noted 01/02/2025 8:[address] [facility] Aspirate Peritoneal cavity structure / Unknown Non-blood Collection / Unknown 12/29/2024 9:42 AM EDT 12/29/2024 9:46 AM EDT Narrative Organism Antibiotic Method Susceptibility Pseudomonas aeruginosa Piperacillin/Tazobactam TOBY <=4 ug/ml: Susceptible Pseudomonas aeruginosa Ceftazidime TOBY 2 ug/ml: Susceptible Pseudomonas aeruginosa Cefepime TOBY 2 ug/ml: Susceptible Pseudomonas aeruginosa Meropenem TOBY 0.5 ug/ml: Susceptible Pseudomonas aeruginosa Ciprofloxacin TOBY 0.25 ug/ml: Susceptible Pseudomonas aeruginosa Levofloxacin TOBY 0.5 ug/ml: Susceptible us Taj Olvera MD LAB MICROBIOLOGY - GENERAL ORDE RACHAEL Final Result [facility] [address] [place] [address], * IR Drain Fluid Cath Perit/Retro Perc (12/29/2024 9:36 AM EDT) Anatomical Region Laterality Modality N/A Interventional R adiology 12/29/2024 12:5 5 PM EDT Narrative 12/29/2024 1:01 PM EDT INDICATION: Status post perforated appendectomy with postoperative collections concerning for abscess with elevated white count and low-grade fever TECHNIQUE: Informed consent was obtained after the risks, benefits and alternatives particularly to procedure were discussed in detail. Any questions were answered in detail. Informed consent was signed by the patient and provider. Patient placed supine on the CAT scan table and axial images obtained for localization of right lower quadrant collections. The appropriate area of the skin was localized, marked, draped and prepped in the usual sterile fashion. Timeout was performed as per hospital protocol acknowledged by the staff present. Moderate intravenous sedation was initiated and maintained for 38 minutes while the patient was independently monitored by the radiology nurse under the supervision of the interventional radiologist. A total of 6 mg of Versed and 150 mcg of fentanyl administered during the procedure. Under CT fluoroscopic guidance an 18 needle was advanced towards the retrocecal collection in the right lower quadrant. Once positioned posterior to the cecum 20 mL of sterile saline injected for displacement. Needle was advanced into the collection posterior medial to the cecum. Tiny amount of serous fluid aspirated. Needle removed over short Amplatz wire and tract dilated up to 12 Ivorian and placement of a 10 Ivorian pigtail catheter. Aspiration reveals approximately 3 mL of blood-tinged serous fluid. Side approximately 1.5 cm cephalad to the initial catheter site was localized anesthetic. A one-step catheter was advanced under CT fluoroscopy into the collection noted more laterally cecum. Once in the collection and approximately 2 mL of serous fluid aspirated and the one-step catheter was removed. Both samples were sent for microbiological evaluation. The initially placed pigtail drainage catheter was secured in place and placed to a drainage bag. Post placement CT images obtained. The patient tolerated the procedure well and left the department in stable condition without immediate complications. Scanner: [employer] [address] Dose reduction technique: AEC (automated exposure control) Dose: total exam DLP 649 mGY per cm FINDINGS: Initial axial images obtained again demonstrate small curvilinear collection lateral to the cecum. Collection noted inferior medial to the cecum adjacent to suture line localized for drainage. The large collection noted more inferiorly is not accessible to percutaneous drainage and ultimately connects to the adjacent smaller collection. Images obtained after catheter placement demonstrate pigtail well formed within the localized collection. A small collection has decreased in size however the collection more inferiorly has not changed. A small collection laterally has decreased in size also. CONCLUSION: CT-guided placement of 10 Ivorian pigtail catheter into retrocecal collection noted inferior and medial to the cecum with approximately 3 mL of blood-tinged serous fluid aspirated. CT-guided catheter drainage of small collection lateral to the cecum with approximately 2 mL of serous fluid aspirated. -------- FINAL REPORT -------- Dictated By: Taj Olvera Dictated Date: 12/29/2024 12:55 ET Assigned Physician: Taj Olvera Reviewed and Electronically Signed By: Taj Olvera Signed Date: 12/29/2024 13:01 ET Workstation ID: [id number] Transcribed By: Self Edit Transcribed Date: 12/29/2024 12:55 ET Procedure Note Taj Olvera MD - 12/29/2024 INDICATION: Status post perforated appendectomy with postoperativecollections concerning for abscess with elevated white count and low-gradefever TECHNIQUE: Informed consent was obtained after the risks, benefits andalternatives particularly to procedure were discussed in detail. Anyquestions were answered in detail. Informed consent was signed by thepatient and provider. Patient placed supine on the CAT scan table and axial images obtained forlocalization of right lower quadrant collections. The appropriate area of the skin was localized, marked, draped and preppedin the usual sterile fashion. Timeout was performed as per hospital protocol acknowledged by the staffpresent. Moderate intravenous sedation was initiated and maintained for 38 minuteswhile the patient was independently monitored by the radiology nurse underthe supervision of the interventional radiologist. A total of 6 mg ofVersed and 150 mcg of fentanyl administered during the procedure. Under CT fluoroscopic guidance an 18 needle was advanced towards theretrocecal collection in the right lower quadrant. Once positionedposterior to the cecum 20 mL of sterile saline injected for displacement.Needle was advanced into the collection posterior medial to the cecum.Tiny amount of serous fluid aspirated. Needle removed over short Amplatzwire and tract dilated up to 12 Ivorian and placement of a 10 Frenchpigtail catheter. Aspiration reveals approximately 3 mL of blood- tingedserous fluid. Side approximately 1.5 cm cephalad to the initial catheter site waslocalized anesthetic. A one-step catheter was advanced under CTfluoroscopy into the collection noted more laterally cecum. Once in thecollection and approximately 2 mL of serous fluid aspirated and theone-step catheter was removed. Both samples were sent for microbiologicalevaluation. The initially placed pigtail drainage catheter was secured in place andplaced to a drainage bag. Post placement CT images obtained. The patienttolerated the procedure well and left the department in stable conditionwithout immediate complications. Scanner: [employer] [address] Dose reduction technique: AEC (automated exposure control) Dose: total exam DLP 649 mGY per cm FINDINGS: Initial axial images obtained again demonstrate smallcurvilinear collection lateral to the cecum. Collection noted inferiormedial to the cecum adjacent to suture line localized for drainage. Thelarge collection noted more inferiorly is not accessible to percutaneousdrainage and ultimately connects to the adjacent smaller collection. Images obtained after catheter placement demonstrate pigtail well formedwithin the localized collection. A small collection has decreased in sizehowever the collection more inferiorly has not changed. A small collectionlaterally has decreased in size also. CONCLUSION: CT-guided placement of 10 Ivorian pigtail catheter into retrocecalcollection noted inferior and medial to the cecum with approximately 3 mLof blood-tinged serous fluid aspirated. CT-guided catheter drainage of small collection lateral to the cecum withapproximately 2 mL of serous fluid aspirated. -------- FINAL REPORT -------- Dictated By: Taj Olvera Dictated Date: 12/29/2024 12:55 ET Assigned Physician: Taj Olvera Reviewed and Electronically Signed By: Taj Olvera Signed Date: 12/29/2024 13:01 ET Workstation ID: [id number] Transcribed By: Self Edit Transcribed Date: 12/29/2024 12:55 ET Taj Olvera MD IMG IR PROCEDURES Final Result * (ABNORMAL) Manual differential (12/29/2024 5:50 AM EDT) Neutrophils % 65.0 % LAB [facility] Lymphocytes % 17.0 % LAB HEMETOLOGY METHOD 12/29/2024 8:03 AM [facility] Monocytes % 9.0 % LAB HEMETOLOGY METHOD 12/29/2024 8:03 AM [facility] Eosinophils % 1.0 % LAB HEMETOLOGY METHOD 12/29/2024 8:03 AM [facility] Basophils % 0.0 % LAB HEMETOLOGY METHOD 12/29/2024 8:03 AM [facility] Myelocytes % 9.0(H) % LAB HEMETOLOGY METHOD 12/29/2024 8:03 AM [facility] Neutrophils Absolute Manual 5.59 1.50 - 7.00 K/mcL LAB HEMETOLOGY METHOD 12/29/2024 8:03 AM [facility] Lymphocytes Absolute 1.46 1.00 - 5.00 K/mcL LAB HEMETOLOGY METHOD 12/29/2024 8:03 AM [facility] Monocytes Absolute Manual 0.77 0.20 - 1.00 K/mcL LAB HEMETOLOGY METHOD 12/29/2024 8:[address] [facility] Eosinophils Absolute Manual 0.09 0.00 - 0.50 K/mcL LAB HEMETOLOGY METHOD 12/29/2024 8:[address] [facility] Basophils Absolute Manual 0.00 0.00 - 0.20 K/mcL LAB HEMETOLOGY METHOD 12/29/2024 8:[address] [facility] Myelocytes Absolute Manual 0.77(H) 0.00 - 0.00 K/mcL LAB HEMETOLOGY METHOD 12/29/2024 8:[address] [facility] Rbc Morphology Consistent with indices Consistent with indices, Normal for [place] LAB HEMETOLOGY METHOD 12/29/2024 8:[address] [facility] Platelet Morphology - WAM See Note(A) Normal LAB HEMETOLOGY METHOD 12/29/2024 8:[address] [facility] Comment:PLT: Normal Blood Venous blood specimen / Unknown Venipuncture / Unknown 12/29/2024 5:50 AM EDT 12/29/2024 6:30 AM EDT Josselyn DANIEL LAB BLOOD ORDERABLES Final Re sult [facility] [address] [place] [address], * Phosphorus (12/29/2024 5:50 AM EDT) Only the most recent of2 resultswithin the time period is included. Phosphorus 4.0 2.5 - 4.5 mg/dL LAB CHEMISTRY METHOD 12/29/2024 7:[address] [facility] Blood Venous blood specimen / Unknown Venipuncture / Unknown 12/29/2024 5:50 AM EDT 12/29/2024 6:30 AM EDT Josselyn DANIEL LAB BLOOD ORDERABLES Final Re sult Performing Organization Address [facility]/ZIP Co de Phone Number [facility] [address] [place] [address], [place] [phone] * Magnesium (12/29/2024 5:50 AM EDT) Only the most recent of3 resultswithin the time period is included. Magnesium 2.1 1.9 - 2.6 mg/dL LAB CHEMISTRY METHOD 12/29/2024 7:[address] [facility] Blood Venous blood specimen / Unknown Venipuncture / Unknown 12/29/2024 5:50 AM EDT 12/29/2024 6:30 AM EDT Josselyn DANIEL LAB BLOOD ORDERABLES Final Re sult Performing Organization Address [facility] de Phone Number [facility] [address] [place] [address], [place] [phone] * CT Abdomen Pelvis w Contrast (12/28/2024 11:48 AM EDT) Only the most recent of2 resultswithin the time period is included. Anatomical Region Laterality Modality Body Computed Tomogra phy 12/28/2024 11:5 1 AM EDT Impressions 12/28/2024 12:10 PM EDT 1. Postsurgical changes compatible with the provided history of a recent appendectomy. Inflammatory stranding and several irregular rim-enhancing fluid collections in the right pelvis and rightward abdomen suspicious for small abscesses. 2. Small bilateral pleural effusions with associated compressive atelectasis. -------- FINAL REPORT -------- Dictated By: Chicho Alaniz Dictated Date: 12/28/2024 11:51 ET Assigned Physician: Chicho Alaniz Reviewed and Electronically Signed By: Chicho Alaniz Signed Date: 12/28/2024 12:10 ET Workstation ID: [id number] Transcribed By: Self Edit Transcribed Date: 12/28/2024 11:52 ET Narrative 12/28/2024 12:10 PM EDT PROCEDURE: Contrast enhanced CT of the abdomen and pelvis. HISTORY: POD #4 s/p lap appendectomy and abd washout, rising WBC, low grade fevers, r/o IAA (oral and IV contrast please). COMPARISON: 12/24/2024. TECHNIQUE: Contrast-enhanced CT of the abdomen and pelvis with coronal and sagittal reformats. IV contrast dose: 90 mL ISOVUE-370. Dose length product: 1521 mGy-cm. FINDINGS: Lung bases: Small bilateral pleural effusions with associated compressive atelectasis. Cardiac: Normal. Liver: Mild steatosis. No focal lesion. Portal veins are patent. Biliary: Cholecystectomy. Mild intra and extrahepatic biliary ductal dilatation, probably due to a reservoir effect. Pancreas: Normal. Spleen: Normal. Adrenal glands: Normal. Kidneys: Small area of cortical scarring in the lower pole on the left. Mild bilateral hydronephrosis. The right ureter is mildly dilated adjacent to inflammatory fat stranding described below. Retroperitoneum: No mass or adenopathy. Abdominal vasculature: Mild atherosclerotic calcification. 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 No obstruction or adenopathy. No mass. There are a few scattered sigmoid diverticula. Post appendectomy with a right lower quadrant drain. There are several rim-enhancing fluid collections in the rightward abdomen and pelvis. These include a 5.6 x 1.7 cm collection in the right posterior pelvis, which likely communicates with a 2.8 x 1.7 cm collection in the right lower quadrant (series 302, image 128), a 2.9 x 1.5 cm retrocecal collection on image 106, and a 2.7 x 1.8 cm right lower abdominal collection on image 121. There is prominent adjacent inflammatory stranding in the rightward abdomen and pelvis. Small amount of postoperative pneumoperitoneum. Abdominal wall: Percutaneous drain entering via the lower left anterior pelvis. Surgical clips and an incision site in the midline infraumbilical region. There are small pockets of presumed postoperative gas and fat stranding in the anterior abdominal wall bilaterally. Moderate subcutaneous fat stranding along the lower flanks. Pelvic nodes: No adenopathy. Pelvic organs: Hysterectomy. Bones: Mild degenerative changes of the spine, hips, SI joints, and pubic symphysis. Procedure Note Chicho Alaniz MD - 12/28/2024 PROCEDURE: Contrast enhanced CT of the abdomen and pelvis. HISTORY: POD #4 s/p lap appendectomy and abd washout, rising WBC, lowgrade fevers, r/o IAA (oral and IV contrast please). COMPARISON: 12/24/2024. TECHNIQUE: Contrast-enhanced CT of the abdomen and pelvis with coronal andsagittal reformats. IV contrast dose: 90 mL ISOVUE-370. Dose length product: 1521 mGy-cm. FINDINGS: Lung bases: Small bilateral pleural effusions with associated compressiveatelectasis. Cardiac: Normal. Liver: Mild steatosis. No focal lesion. Portal veins are patent. Biliary: Cholecystectomy. Mild intra and extrahepatic biliary ductaldilatation, probably due to a reservoir effect. Pancreas: Normal. Spleen: Normal. Adrenal glands: Normal. Kidneys: Small area of cortical scarring in the lower pole on the left.Mild bilateral hydronephrosis. The right ureter is mildly dilatedadjacent to inflammatory fat stranding described below. Retroperitoneum: No mass or adenopathy. Abdominal vasculature: Mild atherosclerotic calcification. 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 Noobstruction or adenopathy. No mass. There are a few scattered sigmoiddiverticula. Post appendectomy with a right lower quadrant drain. Thereare several rim-enhancing fluid collections in the rightward abdomen andpelvis. These include a 5.6 x 1.7 cm collection in the right posteriorpelvis, which likely communicates with a 2.8 x 1.7 cm collection in theright lower quadrant (series 302, image 128), a 2.9 x 1.5 cm retrocecalcollection on image 106, and a 2.7 x 1.8 cm right lower abdominalcollection on image 121. There is prominent adjacent inflammatorystranding in the rightward abdomen and pelvis. Small amount ofpostoperative pneumoperitoneum. Abdominal wall: Percutaneous drain entering via the lower left anteriorpelvis. Surgical clips and an incision site in the midline infraumbilicalregion. There are small pockets of presumed postoperative gas and fatstranding in the anterior abdominal wall bilaterally. Moderatesubcutaneous fat stranding along the lower flanks. Pelvic nodes: No adenopathy. Pelvic organs: Hysterectomy. Bones: Mild degenerative changes of the spine, hips, SI joints, and pubicsymphysis. IMPRESSION: 1. Postsurgical changes compatible with the provided history of a recentappendectomy. Inflammatory stranding and several irregular rim-enhancingfluid collections in the right pelvis and rightward abdomen suspicious forsmall abscesses. 2. Small bilateral pleural effusions with associated compressiveatelectasis. -------- FINAL REPORT -------- Dictated By: Chicho Alaniz Dictated Date: 12/28/2024 11:51 ET Assigned Physician: Chicho Alaniz Reviewed and Electronically Signed By: Chicho Alaniz Signed Date: 12/28/2024 12:10 ET Workstation ID: [id number] Transcribed By: Self Edit Transcribed Date: 12/28/2024 11:52 ET Josselyn DANIEL IMG CT PROCEDURES Final Resul t * SST tube (12/27/2024 7:16 AM EDT) [facility] Extra Tube Hold for add-ons. 12/27/2024 9:[address] [facility] Comment:Auto resulted. Blood Venous blood specimen / Unknown Venipuncture / Unknown 12/27/2024 7:16 AM EDT 12/27/2024 7:21 AM EDT us Pearl Lee MD LAB BLOOD ORDERABLES Fi nal Result [facility] [address] [place] [address], [place] [phone] * Blood Culture, Peripheral Draw #2 (12/26/2024 8:20 AM EDT) Only the most recent of4 resultswithin the time period is included. Culture, Blood No growth at 5 days 12/31/2024 9:[address] [facility] Blood Venous blood specimen / Unknown Venipuncture / Unknown 12/26/2024 8:20 AM EDT 12/26/2024 8:39 AM EDT Jarrett DANIEL LAB MICROBIOLOGY - GENERAL O RDERABLES Final Result [facility] [address] [place] [address], * ECG-Annotated (12/26/2024) us Provider Onbase MD ECG ORDERABLES Final Result * Tissue exam (12/24/2024 10:01 AM EDT) Final Diagnosis A. Large Intestine, Appendix, appendectomy: - Acute gangrenous appendicitis with perforation and marked fibrinopurulent serositis. 12/25/2024 12:[address] [facility] Gross Description A. Large Intestine, Appendix, : Labeled appendix . Received in formalin is a perforated vermiform appendix measuring 6.0 cm in length and up to 1.2 cm in diameter. The proximal margin and mesoappendix are stapled stapled. A moderate amount of mesoappendix is attached. The serosa is huddleston-red to green, hemorrhagic and necrotic. The proximal end is perforated (inked yellow). The lumen ranges from stellate to 1.0 cm in diameter. A fecalith is present, admixed with soft, green-brown fecal material. The mucosa is huddleston-red to green, hemorrhagic and gangrenous. The proximal margin is inked. Three footwear sales representative sections are submitted in one cassette, including a longitudinal section of the distal tip, a center cross section, and the proximal marginal cross section (adjacent to staple line). TS 12/25/2024 12:[address] [facility] Disclaimer Unless otherwise specified, all tissue is 10% NB formalin fixed and paraffin embedded. 12/25/2024 12:[address] [facility] Tissue Appendix structure / Unknown 12/24/2024 10:01 AM EDT 12/24/2024 1:12 PM EDT Pearl Lee MD LAB PATHOLOGY ORDERABLE S Final Result [facility] [address] [place] [address], [place] [phone] * TH AN ENDOTRACHEAL(NO CHARGE) (12/24/2024 9:44 AM EDT) Narrative Adebayo Yuen CRNA - 12/24/2024 9:44 AM EDT Adebayo Yuen CRNA 12/24/2024 9:45 AM General Information and Staff Patient location during procedure: OR Performed by: Adebayo Yuen CRNA Authorized by: Catrachito Mesa DO Intubation Airway not difficult Urgency: elective Final Airway Details Successful airway: ETT Cuffed: yes Successful intubation technique: direct laryngoscopy Endotracheal tube insertion site: oral Blade: Amarilys Blade size: #3 ETT size (mm): 7.0 Cormack-Lehane Classification: grade IIa - partial view of glottis Placement verified by: chest auscultation, capnometry and palpation of cuff Cuff volume (mL): 7 Measured from: gums ETT to gums (cm): 21 Number of attempts at approach: 1Final airway type: endotracheal airway Indications and Patient Condition Indications for airway management: anesthesia and airway protection Spontaneous ventilation: present Sedation level: Yes Preoxygenated: yes Soft Tissue Damage: No Dentition Unchanged: Yes Patient position: sniffing Mask difficulty assessment: 0 - not attempted Catrachito Mesa DO ANESTHESIA ORDERABLES Final Res ult * hCG, serum, qualitative (12/24/2024 7:50 AM EDT) hCG Qual Negative Negative 12/24/2024 9:[address] [facility] Blood Venous blood specimen / Unknown Venipuncture / Unknown 12/24/2024 7:50 AM EDT 12/24/2024 8:27 AM EDT Pearl Lee MD LAB BLOOD ORDERABLES Fi nal Result Performing Organization Address City/[facility]/ZIP Co de Phone Number [facility] [address] [place] [address], [place] [phone] * (ABNORMAL) Prothrombin time with INR (12/24/2024 4:32 AM EDT) Pathologist [facility] Protime 16.3(H) 10.6 - 13.9 sec LAB COAGULATION METHOD 12/24/2024 5:[address] [facility] INR 1.3 LAB COAGULATION METHOD 12/24/2024 5:[address] [facility] Blood Venous blood specimen / Unknown Venipuncture / Unknown 12/24/2024 4:32 AM EDT 12/24/2024 4:38 AM EDT Tacho DANIEL LAB BLOOD ORDERABLES Final Res ult Performing Organization Address [facility]/ZIP Co de Phone Number [facility] [address] [place] [address], [place] [phone] * Lactate, with reflex (12/24/2024 12:19 AM EDT) [facility] LACTIC ACID 1.1 0.4 - 2.0 mmol/L LAB CHEMISTRY METHOD 12/24/2024 1:[address] [facility] Blood Venous blood specimen / Unknown Venipuncture / Unknown 12/24/2024 12:19 AM EDT 12/24/2024 1:04 AM EDT Kendal DANIEL LAB BLOOD ORDERABLES Final Result Performing Organization Address City/[facility]/ZIP Co de Phone Number [facility] [address] [place] [address], [place] [phone] * (ABNORMAL) Blood culture pathogens molecular study (12/24/2024 12:19 AM EDT) [facility] Bacteroides fragilis Detected (A) Not Detected LAB MICROBIOLOGY METHOD 12/25/2024 8:[address] [facility] Blood Venous blood specimen / Unknown Venipuncture / Unknown 12/24/2024 12:19 AM EDT 12/24/2024 1:05 AM EDT Kendal DANIEL LAB MICROBIOLOGY - GENERAL ORDERABLES Final Result Performing Organization Address [facility] Co de Phone Number [facility] [address] [place] [address], [place] [phone] * ECG 12 lead (12/23/2024 11:18 PM EDT) [facility] Ventricular Rate ECG 118 BPM GEMUSE Atrial Rate 118 BPM GEMUSE P-R Interval 138 ms GEMUSE QRS Duration 90 ms GEMUSE Q-T Interval 304 ms GEMUSE QTc 426 ms GEMUSE P Wave [place] 59 degrees GEMUSE R [place] 56 degrees GEMUSE T [place] 68 degrees GEMUSE ECG Interpretation Sinus tachycardia Otherwise normal ECG No previous ECGs available Confirmed by Neli LANE, SANDY ([id number]) on 12/24/2024 7:52:25 AM GEMUSE 12/23/2024 11:1 8 PM EDT 12/24/2024 7:52 AM EDT Joaquin Vásquez DO ECG ORDERABLES Final Result Performing Organization Address City/[facility]/ZIP Co de Phone Number GEMUSE * (ABNORMAL) Urinalysis with reflex microscopic and culture (12/23/2024 7:22 PM EDT) [facility] Specific [place] Urine 1.023 1.003 - 1.030 LAB URINALYSIS - AUTOMATED METHOD 12/23/2024 7:[address] [facility] pH, Urine 5.5 5.0 - 8.0 pH LAB URINALYSIS - AUTOMATED METHOD 12/23/2024 7:50 PM [facility] Leukocytes, Urine Moderate(A) Negative LAB URINALYSIS - AUTOMATED METHOD 12/23/2024 7:50 PM [facility] Nitrite, Urine Negative Negative LAB URINALYSIS - AUTOMATED METHOD 12/23/2024 7:50 PM [facility] Protein, Urine 30(A) <=Trace mg/dL LAB URINALYSIS - AUTOMATED METHOD 12/23/2024 7:50 PM [facility] Glucose, Urine Negative Negative mg/dL LAB URINALYSIS - AUTOMATED METHOD 12/23/2024 7:50 PM [facility] Ketones, Urine >=80(A) Negative mg/dL LAB URINALYSIS - AUTOMATED METHOD 12/23/2024 7:50 PM [facility] Urobilinogen , Urine 1.0 0.2 - 1.0 mg/dL LAB URINALYSIS - AUTOMATED METHOD 12/23/2024 7:50 PM [facility] Bilirubin, Urine Negative Negative LAB URINALYSIS - AUTOMATED METHOD 12/23/2024 7:50 PM [facility] Blood, Urine Negative Negative LAB URINALYSIS - AUTOMATED METHOD 12/23/2024 7:50 PM [facility] RBC, Urine 2 0 - 4 /HPF LAB URINALYSIS - AUTOMATED METHOD 12/23/2024 7:50 PM [facility] WBC, Urine 10.3(H) 0 - 4 /HPF LAB URINALYSIS - AUTOMATED METHOD 12/23/2024 7:50 PM [facility] Squamous Epithelial, Urine 59 0 - 60 /LPF LAB URINALYSIS - AUTOMATED METHOD 12/23/2024 7:50 PM [facility] Bacteria, Urine Negative Negative /HPF LAB URINALYSIS - AUTOMATED METHOD 12/23/2024 7:50 PM [facility] Hyaline Casts, Urine 6(H) 0 - 3 /LPF LAB URINALYSIS - AUTOMATED METHOD 12/23/2024 7:[address] [facility] Urine Urine specimen obtained by clean catch procedure / Unknown Non-blood Collection / Unknown 12/23/2024 7:22 PM EDT 12/23/2024 7:30 PM EDT Pearl Lee MD LAB URINE ORDERABLES Fi nal Result Performing Organization Address [facility] Co de Phone Number [facility] [address] [place] [address], [place] [phone] * Fitch urine culture tube (12/23/2024 7:22 PM EDT) Extra Tube Hold for add-ons. 12/23/2024 9:[address] [facility] Comment:Auto resulted. Urine Urine specimen obtained by clean catch procedure / Unknown Non-blood Collection / Unknown 12/23/2024 7:22 PM EDT 12/23/2024 7:30 PM EDT Pearl Lee MD LAB URINE ORDERABLES Fi nal Result Performing Organization Address [facility] de Phone Number [facility] [address] [place] [address], [place] [phone] * Culture urine (12/23/2024 7:22 PM EDT) Culture, Urine No growth 12/24/2024 1:[address] [facility] Urine Urine specimen obtained by clean catch procedure / Unknown Non-blood Collection / Unknown 12/23/2024 7:22 PM EDT 12/23/2024 7:50 PM EDT Pearl Lee MD LAB MICROBIOLOGY - GENE RAL ORDERABLES Final Result Performing Organization Address City/[facility]/ZIP Co de Phone Number [facility] [address] [place] [address], [place] [phone] * (ABNORMAL) Comprehensive metabolic panel (12/23/2024 4:35 PM EDT) Sodium 132(L) 133 - 145 mmol/L LAB CHEMISTRY [facility] Potassium 3.7 3.5 - 5.5 mmol/L LAB CHEMISTRY METHOD 12/23/2024 5:22 PM [facility] Chloride 97 96 - 110 mmol/L LAB CHEMISTRY METHOD 12/23/2024 5:22 PM [facility] CO2 27 21 - 32 mmol/L LAB CHEMISTRY METHOD 12/23/2024 5:22 PM [facility] Anion Gap 8 3 - 11 LAB CHEMISTRY METHOD 12/23/2024 5:22 PM [facility] Glucose 147(H) 70 - 100 mg/dL LAB CHEMISTRY METHOD 12/23/2024 5:22 PM [facility] BUN 8 5 - 25 mg/dL LAB CHEMISTRY METHOD 12/23/2024 5:22 PM [facility] Creatinine 0.84 0.50 - 1.10 mg/dL LAB CHEMISTRY METHOD 12/23/2024 5:22 PM [facility] eGFR 82 >=60 mL/min/1. 73m2 LAB CHEMISTRY METHOD 12/23/2024 5:22 PM [facility] Comment:Calculation based on the Chronic Kidney Disease Epidemiology Collaboration (CKD-EPI) equation refit without adjustment for race. BUN/Creatinine Ratio 9.5 LAB CHEMISTRY METHOD 12/23/2024 5:22 PM [facility] Calcium 9.7 8.5 - 10.5 mg/dL LAB CHEMISTRY METHOD 12/23/2024 5:22 PM [facility] AST (SGOT) 10 10 - 42 unit/L LAB CHEMISTRY METHOD 12/23/2024 5:[address] [facility] ALT (SGPT) 20 10 - 60 unit/L LAB CHEMISTRY METHOD 12/23/2024 5:[address] [facility] Alkaline Phosphatase 95 42 - 121 unit/L LAB CHEMISTRY METHOD 12/23/2024 5:[address] [facility] Total Protein 7.2 6.0 - 8.0 g/dL LAB CHEMISTRY METHOD 12/23/2024 5:[address] [facility] Albumin 3.5 3.2 - 5.0 g/dL LAB CHEMISTRY METHOD 12/23/2024 5:[address] [facility] Total Bilirubin 1.4 0.0 - 1.4 mg/dL LAB CHEMISTRY METHOD 12/23/2024 5:[address] [facility] Blood Venous blood specimen / Unknown Venipuncture / Unknown 12/23/2024 4:35 PM EDT 12/23/2024 4:49 PM EDT Pearl Lee MD LAB BLOOD ORDERABLES nal Result [facility] [address] [place] [address], from Last [address] [facility] Advance Directives * Full Code - Default (Latest Code Status on File) Date Activated Date Inactivated Comments 12/28/2024 2:25 PM 12/31/2024 4:56 PM This is order is used when code status has not been discussed with the patient, or code status is otherwise unknown/unconfirmed To update the patient's code status, place a code status order. Do not modify or discontinue any currently active code status orders. Care Teams Caster Helper Relationship Specialty Start Date End Date Kaylin Oneill MD [address] [place] [phone] PCP - General Internal Medicine 12/24/24
== END 2025-02-23 09:34 | disposition home or self-care (01) ==
PROVIDERS: PCP Internal Medicine; Visit Provider Internal Medicine
DX: Z00.01 Encounter for general adult medical examination with abnormal findings (principal); N63.21 Unspecified lump in the left breast, upper outer quadrant; E66.01 Morbid (severe) obesity due to excess calories; Z68.36 Body mass index [BMI] 36.0-36.9, adult; R73.01 Impaired fasting glucose; E78.9 Disorder of lipoprotein metabolism, unspecified; F31.78 Bipolar disorder, in full remission, most recent episode mixed

== ENCOUNTER → 2025-02-23 09:07 | Outpatient (BNVA) | payer BC, SELFPAY | PROVIDERS: PCP Internal Medicine; Visit Provider Nurse Practitioner Family | DX: Z00.01 Encounter for general adult medical examination with abnormal findings (principal); N63.21 Unspecified lump in the left breast, upper outer quadrant; E66.01 Morbid (severe) obesity due to excess calories; R73.01 Impaired fasting glucose; E78.9 Disorder of lipoprotein metabolism, unspecified; F31.78 Bipolar disorder, in full remission, most recent episode mixed; Z68.36 Body mass index [BMI] 36.0-36.9, adult | CPT/HCPCS: 96127 ==

== ENCOUNTER 2025-02-25 12:01 | Outpatient (REF) | payer BC, SELFPAY ==
--- NOTE | ~2025-02-25 | MM_ITS ---
EXAMINATIONS: 1. MM DIAGNOSTIC DIGITAL BREAST TOMOSYNTHESIS, LEFT 2. Targeted ultrasound of the left breast CLINICAL INFORMATION: According to requisition: Lump in the left breast, upper outer quadrant. According to the patient, she does not feel the lump today. COMPARISON: Comparison made to multiple prior, most recent December 08, 2024, and most remote January 07, 2020. TECHNIQUE: Digital breast tomosynthesis is performed in both the craniocaudal and mediolateral oblique views along with computer-aided detection (CAD). Synthesized 2D images are generated from the tomosynthesis. Skin BB marker is placed at the location of the previously felt palpable concern in the upper outer quadrant of the left breast. FINDINGS: BREAST COMPOSITION: There are scattered areas of fibroglandular density (ACR BI-RADS breast composition Category b). LEFT BREAST: No significant masses, suspicious calcifications or other abnormalities are seen. In particular, no suspicious findings adjacent to the skin BB marker. Targeted ultrasound of the left breast was performed at the location of the palpable concern as indicated by the patient. The survey centered at 3 o'clock position 7 cm from the nipple did not reveal suspicious sonographic findings. MM/MM tomosynthesis diagnostic LT IMPRESSION: LEFT BREAST: Negative, no evidence of malignancy. Clinical follow-up is recommended, independent of imaging findings. Otherwise, patient may return to screening mammogram. ASSESSMENT: BI-RADS 1 - Negative RECOMMENDATION: 1. Patient should be managed based on the clinical impression. 2. Otherwise, routine annual screening mammography. Results were provided to the patient at time of visit by the technologist. This patient's information was entered into a reminder system with a target due date for their next mammogram. Electronically signed by: Nayla Gong MD 02/25/2025 12:52 PM EDT
--- OUTSIDE RECORDS SUMMARY | 2025-02-25 13:05 | XMS_ITS | Clinical Summary ---
Author Organization [facility] Address [address] [place] [address] Phone Care Team Providers Care Pump Attendant Name Role Phone Kaylin Oneill MD Primary Care Provider [phone] Allergies No known active allergies Medications QUEtiapine [...] 10:45 AM EDT Office Visit General Surgery [facility] [address] [address] Ranjit Mcdonald, DO S/P appendectomy, follow-up exam (Primary Dx) 01/13/2025 11:15 AM EDT Office Visit General Surgery - [place] [address] [address] Ranjit Mcdonald, DO S/P appendectomy, follow-up exam (Primary Dx) 12/24/2024 9:30 AM EDT - 12/24/2024 11:00 AM EDT Surgery [facility] Main OR [address] [place] [address] Pearl Lee MD APPENDECTOMY LAPAROSCOPIC [14121 (CPT )] 12/24/2024 9:15 AM EDT Anesthesia Event [facility] OR [address] [place] [address] Catrachito Mesa DO 12/23/2024 11:45 PM EDT - 12/31/2024 2:51 PM EDT Hospital Encounter [facility] Urology Unit [address] [place] [address] Pearl Lee MD McPartland, Kenneth, MD Acute appendicitis with localized peritonitis without gangrene, unspecified whether abscess present, unspecified whether perforation present (Primary Dx); Acute appendicitis, unspecified acute appendicitis type Discharge Disposition: [facility] from Last 3 Months Surgical History [...] ENDOTRACHEAL(NO CHARGE) Routine 12/24/2024 9:44 AM EDT [place] LAPAROSCOPY SURGICAL APPENDECTOMY 12/24/2024 9:20 AM EDT [...] of8 resultswithin the time period is included. [facility] WBC 6.3 4.8 - 10.8 K/mcL LAB HEMETOLOGY METHOD 01/20/2025 12:10 PM EDT [facility] RBC 3.90 3.80 - 4.80 M/mcL LAB HEMETOLOGY METHOD 01/20/2025 12:10 PM EDT [facility] Hemoglobin 12.0 11.5 - 16.0 g/dL LAB HEMETOLOGY METHOD 01/20/2025 12:10 PM EDT [facility] Hematocrit 36.8 35.0 - 47.0 % LAB HEMETOLOGY METHOD 01/20/2025 12:10 PM EDT [facility] MCV 95.1 79.0 - 98.0 FL LAB HEMETOLOGY METHOD 01/20/2025 12:10 PM EDT [facility] MCH 31.0 27.0 - 32.0 pcg LAB HEMETOLOGY METHOD 01/20/2025 12:10 PM EDT [facility] MCHC 32.6 32.0 - 37.0 g/dL LAB HEMETOLOGY METHOD 01/20/2025 12:10 PM EDT [facility] RDW 13.4 11.0 - 15.0 % LAB HEMETOLOGY METHOD 01/20/2025 12:10 PM EDT [facility] Platelets 237 130 - 400 K/mcL LAB HEMETOLOGY METHOD 01/20/2025 12:10 PM EDT [facility] MPV 9.9 7.0 - 11.0 FL LAB HEMETOLOGY METHOD 01/20[facility]25 [facility] NRBC 0.0 <1.0 % LAB HEMETOLOGY METHOD 01/20/2025 12:10 PM [facility] NRBC Absolute 0.00 <0.10 K/mcL LAB HEMETOLOGY METHOD 01/20/2025 12:10 PM [facility] Neutrophils Relative 67.1 % LAB HEMETOLOGY METHOD 01/20/2025 12:10 PM [facility] Lymphocytes Relative 20.5 % LAB HEMETOLOGY METHOD 01/20/2025 12:10 PM [facility] Monocytes Relative 8.5 % LAB HEMETOLOGY METHOD 01/20/2025 12:10 PM [facility] Eosinophils Relative 2.8 % LAB HEMETOLOGY METHOD 01/20/2025 12:10 PM [facility] Basophils Relative 0.8 % LAB HEMETOLOGY METHOD 01/20/2025 12:10 PM [facility] Immature Granulocytes Relative 0.3 % LAB HEMETOLOGY METHOD 01/20/2025 12:10 PM [facility] Neutrophils Absolute 4.24 1.50 - 7.00 K/mcL LAB HEMETOLOGY METHOD 01/20/2025 12:10 PM [facility] Lymphocytes Absolute 1.30 1.00 - 5.00 K/mcL LAB HEMETOLOGY METHOD 01/20/2025 12:10 PM [facility] Monocytes Absolute 0.54 0.20 - 1.00 K/mcL LAB HEMETOLOGY METHOD 01/20/2025 12:10 PM [facility] Eosinophils Absolute 0.18 0.00 - 0.50 K/mcL LAB HEMETOLOGY METHOD 01/20/2025 12:10 PM T [facility] Basophils Absolute 0.05 0.00 - 0.20 K/[facility] LAB HEMETOLOGY METHOD 01/20/2025 12:10 PM T [facility] Immature Granulocytes Absolute 0.02 0.00 - 0.03 K/[facility] LAB [facility]Y HOSPITALTOLOGY METHOD 01/20/2025 12:10 PM EDT [facility] Blood Venous blood specimen / Unknown Venipuncture / Unknown 01/20/2025 11:02 AM EDT 01/20/2025 11:38 AM EDT us Ranjit Mcdonald DO LAB BLOOD ORDERABLES Final Res ult [facility] [address] [place] [address], * Basic metabolic panel (01/20/2025 11:02 AM EDT) Only the most recent of6 resultswithin the time period is included. Sodium 138 133 - 145 mmol/L LAB CHEMISTRY METHOD 01/20/2025 12:52 PM [facility] Potassium 3.9 3.5 - 5.5 mmol/L LAB CHEMISTRY METHOD 01/20/2025 12:52 PM [facility] Chloride 106 96 - 110 mmol/L LAB CHEMISTRY METHOD 01/20/2025 12:52 PM [facility] CO2 27 21 - 32 mmol/L LAB CHEMISTRY METHOD 01/20/2025 12:52 PM [facility] Anion Gap 5 3 - 11 LAB CHEMISTRY METHOD 01/20/2025 12:52 PM [facility] Glucose 87 70 - 100 mg/dL LAB CHEMISTRY METHOD 01/20/2025 12:52 PM [facility] BUN 15 5 - 25 mg/dL LAB CHEMISTRY METHOD 01/20/2025 12:52 PM EDT [facility] Creatinine 0.69 0.50 - 1.10 mg/dL LAB CHEMISTRY METHOD 01/20/2025 12:52 PM EDT [facility] eGFR 103 >=60 mL/min/1. 73m2 LAB CHEMISTRY METHOD 01/20/2025 12:52 PM EDT [facility] Comment:Calculation based on the Chronic Kidney Disease Epidemiology Collaboration (CKD-EPI) equation refit without adjustment for race. BUN/Creatinine Ratio 21.7 LAB CHEMISTRY METHOD 01/20/2025 12:52 PM EDT [facility] Calcium 9.2 8.5 - 10.5 mg/dL LAB CHEMISTRY METHOD 01/20/2025 12:52 PM EDT [facility] Blood Venous blood specimen / Unknown Venipuncture / Unknown 01/20/2025 11:02 AM EDT 01/20/2025 11:43 AM EDT us Ranjit Mcdonald DO LAB BLOOD ORDERABLES Final Res ult [facility] [address] [place] [address], * (ABNORMAL) Culture abscess with gram stain (12/29/2024 9:42 AM EDT) Only the most recent of2 resultswithin the time period is included. CULTURE, ABSCESS Growth in broth media only Pseudomonas aeruginosa(A) TOBY 01/02/2025 8:59 AM EDT [facility] Comment: The organism value for this result has been updated. These results have been appended to the previously preliminary verified report. This is an edited result. Previous organism was Gram negative bacilli on 01/01/2025 at 0857 EDT. Gram Stain Result No polymorphonuclear leukocytes, No epithelial cells, and No organisms noted 01/02/2025 8:59 AM EDT [facility] Aspirate Peritoneal cavity structure / [...] MICROBIOLOGY - GENERAL ORDE RACHAEL Final Result [facility] [address] [place] [address], * IR Drain Fluid Cath Perit/Retro Perc [...] wire and tract dilated up to 12 [place] and placement of a 10 [place] pigtail catheter. Aspiration reveals approximately 3 mL [...] in stable condition without immediate complications. Scanner: [employer] [address] Dose reduction technique: AEC [...] size also. CONCLUSION: CT-guided placement of 10 [place] pigtail catheter into retrocecal collection noted inferior [...] Signed Date: 12/29/2024 13:01 ET Workstation ID: [id number] Transcribed By: Self Edit Transcribed Date: 12/29/2024 [...] Amplatzwire and tract dilated up to 12 [place] and placement of a 10 Frenchpigtail catheter. [...] department in stable conditionwithout immediate complications. Scanner: [employer] [address] Dose reduction technique: AEC [...] size also. CONCLUSION: CT-guided placement of 10 [place] pigtail catheter into retrocecalcollection noted inferior and [...] Signed Date: 12/29/2024 13:01 ET Workstation ID: [id number] Transcribed By: Self Edit Transcribed Date: 12/29/2024 12:55 ET Taj Olvera MD IMG IR PROCEDURES Final Result * (ABNORMAL) Manual differential (12/29/2024 5:50 AM EDT) Neutrophils % 65.0 % LAB HEMETOLOGY METHOD 12/29/2024 8:03 AM [facility] Lymphocytes % 17.0 % LAB HEMETOLOGY METHOD 12/29/2024 8:03 AM [facility] Monocytes % 9.0 % LAB HEMETOLOGY METHOD 12/29/2024 8:03 AM [facility] Eosinophils % 1.0 % LAB HEMETOLOGY METHOD 12/29/2024 8:03 AM [facility] Basophils % 0.0 % LAB HEMETOLOGY METHOD 12/29/2024 8:03 AM [facility] Myelocytes % 9.0(H) % LAB HEMETOLOGY METHOD 12/29/2024 8:03 AM [facility] Neutrophils Absolute Manual 5.59 1.50 - 7.00 K/mcL LAB HEMETOLOGY METHOD 12/29/2024 8:03 AM [facility] Lymphocytes Absolute 1.46 1.00 - 5.00 K/mcL LAB HEMETOLOGY METHOD 12/29/2024 8:03 AM [facility] Monocytes Absolute Manual 0.77 0.20 - 1.00 K/mcL LAB HEMETOLOGY METHOD 12/29/2024 8:03 AM EDT [facility] Eosinophils Absolute Manual 0.09 0.00 - 0.50 K/mcL LAB HEMETOLOGY METHOD 12/29/2024 8:03 AM EDT [facility] Basophils Absolute Manual 0.00 0.00 - 0.20 K/mcL LAB HEMETOLOGY METHOD 12/29/2024 8:03 AM EDT [facility] Myelocytes Absolute Manual 0.77(H) 0.00 - 0.00 K/mcL LAB HEMETOLOGY METHOD 12/29/2024 8:03 AM EDT [facility] Rbc Morphology Consistent with indices Consistent with indices, Normal for [place] LAB HEMETOLOGY METHOD 12/29/2024 8:03 AM EDT [facility] Platelet Morphology - WAM See Note(A) Normal LAB HEMETOLOGY METHOD 12/29/2024 8:03 AM EDT [facility] Comment:PLT: Normal Blood Venous blood specimen / Unknown Venipuncture / Unknown 12/29/2024 5:50 AM EDT 12/29/2024 6:30 AM EDT Josselyn DANIEL LAB BLOOD ORDERABLES Final Re sult [facility] [address] [place] [address], * Phosphorus (12/29/2024 5:50 AM EDT) Only the most recent of2 resultswithin the time period is included. Phosphorus 4.0 2.5 - 4.5 mg/dL LAB CHEMISTRY METHOD 12/29/2024 7:08 AM EDT [facility] Blood Venous blood specimen / Unknown Venipuncture / Unknown 12/29/2024 5:50 AM EDT 12/29/2024 6:30 AM EDT Josselyn DANIEL LAB BLOOD ORDERABLES Final Re sult Performing Organization Address [facility]/ZIP Co de Phone Number [facility] [address] [place] [address], [place] [phone] * Magnesium (12/29/2024 5:50 AM EDT) Only the most recent of3 resultswithin the time period is included. Magnesium 2.1 1.9 - 2.6 mg/dL LAB CHEMISTRY METHOD 12/29/2024 7:08 AM EDT [facility] Blood Venous blood specimen / Unknown Venipuncture / Unknown 12/29/2024 5:50 AM EDT 12/29/2024 6:30 AM EDT Josselyn DANIEL LAB BLOOD ORDERABLES Final Re sult Performing Organization Address [facility] de Phone Number [facility] [address] [place] [address], [place] [phone] * CT Abdomen Pelvis w Contrast (12/28/2024 [...] Signed Date: 12/28/2024 12:10 ET Workstation ID: [id number] Transcribed By: Self Edit Transcribed Date: 12/28/2024 [...] Signed Date: 12/28/2024 12:10 ET Workstation ID: [id number] Transcribed By: Self Edit Transcribed Date: 12/28/2024 11:52 ET Josselyn DANIEL IMG CT PROCEDURES Final Resul t * SST tube (12/27/2024 7:16 AM EDT) [facility] Extra Tube Hold for add-ons. 12/27/2024 9:01 AM EDT [facility] Comment:Auto resulted. Blood Venous blood specimen / Unknown Venipuncture / Unknown 12/27/2024 7:16 AM EDT 12/27/2024 7:21 AM EDT us Pearl Lee MD LAB BLOOD ORDERABLES Fi nal Result [facility] [address] [place] [address], [place] [phone] * Blood Culture, Peripheral Draw #2 (12/26/2024 8:20 AM EDT) Only the most recent of4 resultswithin the time period is included. Culture, Blood No growth at 5 days 12/31/2024 9:01 AM EDT [facility] Blood Venous blood specimen / Unknown Venipuncture / Unknown 12/26/2024 8:20 AM EDT 12/26/2024 8:39 AM EDT Jarrett DANIEL LAB MICROBIOLOGY - GENERAL O RDERABLES Final Result [facility] [address] [place] [address], * ECG-Annotated (12/26/2024) us Provider Onbase MD ECG ORDERABLES Final Result * Tissue exam (12/24/2024 10:01 AM EDT) Final Diagnosis A. Large Intestine, Appendix, appendectomy: - Acute gangrenous appendicitis with perforation and marked fibrinopurulent serositis. 12/25/2024 12:36 PM EDT [facility] Gross Description A. Large Intestine, [...] gangrenous. The proximal margin is inked. Three hvac sales representative sections are submitted in one cassette, including a longitudinal section of the distal tip, a center cross section, and the proximal marginal cross section (adjacent to staple line). TS 12/25/2024 12:36 PM EDT [facility] Disclaimer Unless otherwise specified, all tissue is 10% NB formalin fixed and paraffin embedded. 12/25/2024 12:36 PM EDT [facility] Tissue Appendix structure / Unknown 12/24/2024 10:01 AM EDT 12/24/2024 1:12 PM EDT Pearl Lee MD LAB PATHOLOGY ORDERABLE S Final Result [facility] [address] [place] [address], [place] [phone] * TH AN ENDOTRACHEAL(NO CHARGE) (12/24/2024 9:44 [...] Qual Negative Negative 12/24/2024 9:31 AM EDT [facility] Blood Venous blood specimen / Unknown Venipuncture / Unknown 12/24/2024 7:50 AM EDT 12/24/2024 8:27 AM EDT Pearl Lee MD LAB BLOOD ORDERABLES Fi nal Result Performing Organization Address City/[facility]/ZIP Co de Phone Number [facility] [address] [place] [address], [place] [phone] * (ABNORMAL) Prothrombin time with INR (12/24/2024 4:32 AM EDT) Pathologist [facility] Protime 16.3(H) 10.6 - 13.9 sec LAB COAGULATION METHOD 12/24/2024 5:01 AM EDT [facility] INR 1.3 LAB COAGULATION METHOD 12/24/2024 5:01 AM EDT [facility] Blood Venous blood specimen / Unknown Venipuncture / Unknown 12/24/2024 4:32 AM EDT 12/24/2024 4:38 AM EDT Tacho DANIEL LAB BLOOD ORDERABLES Final Res ult Performing Organization Address [facility]/ZIP Co de Phone Number [facility] [address] [place] [address], [place] [phone] * Lactate, with reflex (12/24/2024 12:19 AM EDT) [facility] LACTIC ACID 1.1 0.4 - 2.0 mmol/L LAB CHEMISTRY METHOD 12/24/2024 1:29 AM EDT [facility] Blood Venous blood specimen / Unknown Venipuncture / Unknown 12/24/2024 12:19 AM EDT 12/24/2024 1:04 AM EDT Kendal DANIEL LAB BLOOD ORDERABLES Final Result Performing Organization Address City/[facility]/ZIP Co de Phone Number [facility] [address] [place] [address], [place] [phone] * (ABNORMAL) Blood culture pathogens molecular study (12/24/2024 12:19 AM EDT) [facility] Bacteroides fragilis Detected (A) Not Detected LAB MICROBIOLOGY METHOD 12/25/2024 8:19 AM EDT [facility] Blood Venous blood specimen / Unknown Venipuncture / Unknown 12/24/2024 12:19 AM EDT 12/24/2024 1:05 AM EDT Kendal DANIEL LAB MICROBIOLOGY - GENERAL ORDERABLES Final Result Performing Organization Address [facility] Co de Phone Number [facility] [address] [place] [address], [place] [phone] * ECG 12 lead (12/23/2024 11:18 PM EDT) [facility] Ventricular Rate ECG 118 BPM GEMUSE Atrial Rate 118 BPM GEMUSE P-R Interval 138 ms GEMUSE QRS Duration 90 ms GEMUSE Q-T Interval 304 ms GEMUSE QTc 426 ms GEMUSE P Wave [place] 59 degrees GEMUSE R [place] 56 degrees GEMUSE T [place] 68 degrees GEMUSE ECG Interpretation Sinus tachycardia Otherwise normal ECG No previous ECGs available Confirmed by Neli LANE, SANDY ([id number]) on 12/24/2024 7:52:25 AM GEMUSE 12/23/2024 11:1 8 PM EDT 12/24/2024 7:52 AM EDT Joaquin Vásquez DO ECG ORDERABLES Final Result Performing Organization Address City/[facility]/ZIP Co de Phone Number GEMUSE * (ABNORMAL) Urinalysis with reflex microscopic and culture (12/23/2024 7:22 PM EDT) [facility] Specific [place] Urine 1.023 1.003 - 1.030 LAB URINALYSIS - AUTOMATED METHOD 12/23/2024 7:50 PM EDT [facility] pH, Urine 5.5 5.0 - 8.0 pH LAB URINALYSIS - AUTOMATED METHOD 12/23/2024 7:50 PM [facility] Leukocytes, Urine Moderate(A) Negative LAB URINALYSIS - AUTOMATED METHOD 12/23/2024 7:50 PM [facility] Nitrite, Urine Negative Negative LAB URINALYSIS - AUTOMATED METHOD 12/23/2024 7:50 PM [facility] Protein, Urine 30(A) <=Trace mg/dL LAB URINALYSIS - AUTOMATED METHOD 12/23/2024 7:50 PM [facility] Glucose, Urine Negative Negative mg/dL LAB URINALYSIS - AUTOMATED METHOD 12/23/2024 7:50 PM [facility] Ketones, Urine >=80(A) Negative mg/dL LAB URINALYSIS - AUTOMATED METHOD 12/23/2024 7:50 PM [facility] Urobilinogen , Urine 1.0 0.2 - 1.0 mg/dL LAB URINALYSIS - AUTOMATED METHOD 12/23/2024 7:50 PM [facility] Bilirubin, Urine Negative Negative LAB URINALYSIS - AUTOMATED METHOD 12/23/2024 7:50 PM [facility] Blood, Urine Negative Negative LAB URINALYSIS - AUTOMATED METHOD 12/23/2024 7:50 PM [facility] RBC, Urine 2 0 - 4 /HPF LAB URINALYSIS - AUTOMATED METHOD 12/23/2024 7:50 PM [facility] WBC, Urine 10.3(H) 0 - 4 /HPF LAB URINALYSIS - AUTOMATED METHOD 12/23/2024 7:50 PM [facility] Squamous Epithelial, Urine 59 0 - 60 /LPF LAB URINALYSIS - AUTOMATED METHOD 12/23/2024 7:50 PM [facility] Bacteria, Urine Negative Negative /HPF LAB URINALYSIS - AUTOMATED METHOD 12/23/2024 7:50 PM [facility] Hyaline Casts, Urine 6(H) 0 - 3 /LPF LAB URINALYSIS - AUTOMATED METHOD 12/23/2024 7:50 PM EDT [facility] Urine Urine specimen obtained by clean catch procedure / Unknown Non-blood Collection / Unknown 12/23/2024 7:22 PM EDT 12/23/2024 7:30 PM EDT Pearl Lee MD LAB URINE ORDERABLES Fi nal Result Performing Organization Address [facility] Co de Phone Number [facility] [address] [place] [address], [place] [phone] * Fitch urine culture tube (12/23/2024 7:22 PM EDT) Extra Tube Hold for add-ons. 12/23/2024 9:01 PM EDT [facility] Comment:Auto resulted. Urine Urine specimen obtained by clean catch procedure / Unknown Non-blood Collection / Unknown 12/23/2024 7:22 PM EDT 12/23/2024 7:30 PM EDT Pearl Lee MD LAB URINE ORDERABLES Fi nal Result Performing Organization Address [facility] de Phone Number [facility] [address] [place] [address], [place] [phone] * Culture urine (12/23/2024 7:22 PM EDT) Culture, Urine No growth 12/24/2024 1:31 PM EDT [facility] Urine Urine specimen obtained by clean catch procedure / Unknown Non-blood Collection / Unknown 12/23/2024 7:22 PM EDT 12/23/2024 7:50 PM EDT Pearl Lee MD LAB MICROBIOLOGY - GENE RAL ORDERABLES Final Result Performing Organization Address City/[facility]/ZIP Co de Phone Number [facility] [address] [place] [address], [place] [phone] * (ABNORMAL) Comprehensive metabolic panel (12/23/2024 4:35 PM EDT) Sodium 132(L) 133 - 145 mmol/L LAB CHEMISTRY METHOD 12/23/2024 5:22 PM [facility] Potassium 3.7 3.5 - 5.5 mmol/L LAB CHEMISTRY METHOD 12/23/2024 5:22 PM [facility] Chloride 97 96 - 110 mmol/L LAB CHEMISTRY METHOD 12/23/2024 5:22 PM [facility] CO2 27 21 - 32 mmol/L LAB CHEMISTRY METHOD 12/23/2024 5:22 PM [facility] Anion Gap 8 3 - 11 LAB CHEMISTRY METHOD 12/23/2024 5:22 PM [facility] Glucose 147(H) 70 - 100 mg/dL LAB CHEMISTRY METHOD 12/23/2024 5:22 PM [facility] BUN 8 5 - 25 mg/dL LAB CHEMISTRY METHOD 12/23/2024 5:22 PM [facility] Creatinine 0.84 0.50 - 1.10 mg/dL LAB CHEMISTRY METHOD 12/23/2024 5:22 PM [facility] eGFR 82 >=60 mL/min/1. 73m2 LAB CHEMISTRY METHOD 12/23/2024 5:22 PM [facility] Comment:Calculation based on the Chronic Kidney Disease Epidemiology Collaboration (CKD-EPI) equation refit without adjustment for race. BUN/Creatinine Ratio 9.5 LAB CHEMISTRY METHOD 12/23/2024 5:22 PM [facility] Calcium 9.7 8.5 - 10.5 mg/dL LAB CHEMISTRY METHOD 12/23/2024 5:22 PM [facility] AST (SGOT) 10 10 - 42 unit/L LAB CHEMISTRY METHOD 12/23/2024 5:22 PM EDT [facility] ALT (SGPT) 20 10 - 60 unit/L LAB CHEMISTRY METHOD 12/23/2024 5:22 PM EDT [facility] Alkaline Phosphatase 95 42 - 121 unit/L LAB CHEMISTRY METHOD 12/23/2024 5:22 PM EDT [facility] Total Protein 7.2 6.0 - 8.0 g/dL LAB CHEMISTRY METHOD 12/23/2024 5:22 PM EDT [facility] Albumin 3.5 3.2 - 5.0 g/dL LAB CHEMISTRY METHOD 12/23/2024 5:22 PM EDT [facility] Total Bilirubin 1.4 0.0 - 1.4 mg/dL LAB CHEMISTRY METHOD 12/23/2024 5:22 PM EDT [facility] Blood Venous blood specimen / Unknown Venipuncture / Unknown 12/23/2024 4:35 PM EDT 12/23/2024 4:49 PM EDT Pearl Lee MD LAB BLOOD ORDERABLES nal Result [facility] [address] [place] [address], from Last 3 Months Insurance [facility] Advance Directives * Full [...] currently active code status orders. Care Teams Pump Attendant Relationship Specialty Start Date End Date Kaylin Oneill MD [address] [place] [phone] PCP - General Internal Medicine 12/24/24
== END 2025-02-25 12:02 | disposition home or self-care (01) ==
LOC: HO.MAMMO 12:01
PROVIDERS: PCP Internal Medicine; Visit Provider Internal Medicine
DX: Z12.31 Encounter for screening mammogram for malignant neoplasm of breast (principal); N63.21 Unspecified lump in the left breast, upper outer quadrant
CPT/HCPCS: 76642; 77061; 77065

== ENCOUNTER → 2025-02-25 13:00 | Outpatient (BNV) | payer BC, SELFPAY | PROVIDERS: PCP Internal Medicine; Visit Provider Radiology Body Imaging | DX: N63.21 Unspecified lump in the left breast, upper outer quadrant (principal) | CPT/HCPCS: 76642; 77061; 77065 ==

== ENCOUNTER 2025-05-27 10:00 | Inpatient (IN) | payer BC, SELFPAY ==
[2025-05-27 10:01] VITALS: BP 131/102; PULSE 97; RESP 18; TEMP 36.8; O2SAT 94; BMI 28.6
--- NOTE | 2025-05-27 10:30 | MHC.EDTECH ---
Urine cup provided, patient to bathroom but unable to void at this time. Cup at bedside
[2025-05-27 10:37] LABS: Hematocrit 40.7 % (37.0-47.0); Hemoglobin 14.0 g/dl (12.0-16.0); Imm Gran Abs Auto 0.02 X10*3/uL (0.00-0.03); Imm Gran Pct Auto 0.3 % (0.0-0.4); Lymphocytes Absolute Auto 2.5 X10*3/uL (1.2-4.9); MANUAL DIFF FLAG NO; Mean Corpuscular HGB Conc 34.4 g/dl (31.0-35.0); Mean Corpuscular Hemoglobin 31.3 pg (27.0-33.0); Mean Corpuscular Volume 91.1 fL (80.0-98.0); NRBC Abs Auto 0.000 X10*3/uL (0.0-0.012); NRBC Pct Auto 0.0 /100WBC (0.0-0.2); Platelet Count 320 X10*3/uL (160-400); Red Blood Count 4.47 X10*6/uL (4.20-5.50); White Blood Count 7.7 X10*3/uL (4.8-10.8)
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
[2025-05-27 10:51] LABS: Alanine Aminotransferase 162 U/L (0-31); Albumin Level 4.5 g/dL (3.5-5.0); Alkaline Phosphatase 114 U/L (39-117); Anion Gap 17 (12-20); Aspartate Amino Transferase 231 U/L (5-31); Blood Urea Nitrogen 10 mg/dL (9-16); Calcium 9.2 mg/dL (8.4-10.2); Carbon Dioxide 26 mmol/L (22-29); Chloride 106 mmol/L (96-108); Creatinine Clr Calc Pharmacy 93.3; Estimated Glomerular Filt Rate > 60; Magnesium 2.5 mg/dL (1.6-2.6); Potassium 4.0 mmol/L (3.3-5.1); Sodium 145 mmol/L (135-145); Total Protein 7.3 g/dL (6.5-8.0)
--- NOTE | 2025-05-27 10:54 | ED.PSYCH ---
HPI - Psych General Chief Complaint: Psychiatric Symptoms Stated Complaint: crisis Time Seen by Provider: 05/27/25 10:11 Source: patient Mode of arrival: ambulatory Limitations: no limitations History of Present Illness ED Provider: MARÍA Granados HPI Narrative: Chief Complaint: ?I wanted to kill myself.? History of Present Illness: The patient presents to the emergency department reporting active suicidal ideation with intent and a specific plan to stab herself with a knife. She endorses a history of prior suicide attempts (?not so great?) and states she was psychiatrically hospitalized ?a long time ago.? She reports taking prescribed ?bipolar meds? daily but does not recall the names. She denies a diagnosis of schizophrenia, identifying only bipolar disorder. The patient states she does not have a psychiatrist and only has a family therapist. The patient endorses auditory hallucinations (voices telling her to kill herself) and seeing ?shadows.? She reports significant anxiety and requests Ativan, stating she ?needs it really bad.? She drinks vodka intermittently when experiencing voices, typically up to a fifth, and last consumed alcohol earlier today. She reports past episodes of alcohol withdrawal characterized by confusion but denies withdrawal seizures. She currently denies chest pain, shortness of breath, fever, or chills, and states she feels ?a little bit better now.? Related Data Home Medications ?Medication ?Instructions ?Recorded ?Confirmed multivitamin (Daily Multi-Vitamin 1 tab PO DAILY 11/16/20 05/27/25 tablet) omega 7-mwn-qtx-fish oil 60 mg-90 1 cap PO DAILY 10/10/22 05/27/25 mg-500 mg capsule (Fish Oil) biotin 1 mg capsule 1 mg PO DAILY 02/23/25 05/27/25 quetiapine 100 mg tablet 50 mg PO BEDTIME 05/27/25 05/27/25 tirzepatide (weight loss) 12.5 12.5 mg subcut QWEEK 05/27/25 05/27/25 mg/0.5 mL subcutaneous pen injector (Zepbound) Previous Rx's ?Medication ?Instructions ?Recorded simvastatin 10 mg tablet 10 mg PO DAILY 90 days #90 tabs 10/28/24 nystatin 100,000 unit/gram topical 1 appl topical DAILY 30 days #60 02/23/25 powder grams Allergies Allergy/AdvReac Type Severity Reaction Status Date / Time paroxetine (Paxil) AdvReac Unknown feels Verified 05/27/25 10:06 like I'm in a fog vicodin AdvReac Unknown Gi upset Uncoded 01/29/23 09:05 Review of Systems Review of Systems: Review of Systems: Psychiatric: Positive for suicidal ideation with plan, auditory hallucinations, visual phenomena (seeing shadows), anxiety. Constitutional: Denies recent illness, fevers, chills. Cardiovascular: Denies chest pain. Respiratory: Denies shortness of breath. All other systems not specifically discussed. Yes all other systems are reviewed and are negative FOR[facility]LY [facility] Past Medical History Attestation statement: The following information was validated with the patient. Source: old records reviewed and nursing notes reviewed Medical History Bipolar disorder Iron deficiency anemia History of panic attacks Anxiety and depression History of alcohol abuse Surgical History Status post bariatric surgery Family History Family History Other Substance use disorder Social History Social History Household Members: Spouse Housing: House Alcohol intake: former Year quit: 2020 Patient Tobacco Use Status: Former Tobacco user e-Cigarette/Vaping Use: Never Used Second Hand Smoke Exposure: No Advance Directives: No Advance Directives Information Provided: Yes service: No Current occupational status: unemployed Cognitive needs: No Hearing needs: No Vision needs: No Physical Exam Exam: Exam: Appearance: Alert.? Oriented X3.? No acute distress.? Head: Normocephalic, atraumatic, no step-offs or deformities Eyes: Pupils equal, round and reactive to light. Neck: Normal inspection.? Neck supple.? CVS: Normal heart rate and rhythm.? Pulses normal.? Respiratory: No respiratory distress.? Breath sounds normal.? Abdomen: Soft and nontender.? Skin: Skin warm and dry.? Normal skin color.? Normal skin turgor.? Extremities: No lower extremity edema.? No calf ttp. 5/5 strength to bilateral upper and lower extremities Back: No midline tenderness, no C-spine tenderness, full range of motion, no CVA tenderness bilaterally Neuro: Oriented X 3.? No motor deficit.? No sensory deficit. CN 2-12 intact Vital Signs: Vital Signs: Last Vital Signs Temp 97.5 F 05/27/25 15:29 Pulse 90 05/27/25 16:23 Resp 16 05/27/25 16:23 BP 142/79 H 05/27/25 16:23 Pulse Ox 97 05/27/25 15:29 O2 Del Method Room Air 05/27/25 15:29 BMI result Body Mass Index 28.6 vss Course Reevaluation(s) Reevaluation #1: CBC unremarkable. Chemistry with no acute findings needing intervention. However, transaminases are noted to be elevated in a nearly 2-1 fashion likely in the setting of chronic alcohol abuse. I did add an ethanol level on this patient as she does admit to drinking prior to arrival. Salicylates acetaminophen negative. She reports she has not been able to give us a urine she does not feel like she needs to urinate however she will give us 1 soon. Time: 11:08 Reevaluation #2: UA with no infection. Urine negative. Urine toxicology negative. Ethanol level 290 acute alcohol intoxication suspected. At this time patient will be placed into observation to allow more time to be evaluated by care team. At time observation was started patient common cooperative no acute distress will continue to monitor Time: 12:16 Reevaluation #3: Patient will be admitted to psych. They will put in a hospitalist consult if needed Time: 16:48 Medications Administered Generic Name Dose Route Start Last Admin Trade Name Freq PRN Reason Stop Dose Admin Lorazepam 2 mg 05/27/25 15:26 05/27/25 15:40 Lorazepam 1 Mg Tablet PO 2 mg Q4H PRN Administration ciwa 13-17 Thiamine HCl 100 mg 05/27/25 15:30 05/27/25 16:22 Thiamine Hcl 100 Mg Tablet PO 100 mg DAILY COURTNEY Administration Discontinued Medications Generic Name Dose Route Start Last Admin Trade Name Freq PRN Reason Stop Dose Admin Lorazepam 1 mg 05/27/25 10:43 05/27/25 10:53 Lorazepam 1 Mg Tablet PO 05/27/25 10:44 1 mg ONCE ONE Administration Phenobarbital Sodium 262 mg 05/27/25 16:00 05/27/25 16:22 Phenobarbital Sodium 130 Mg/Ml Im Once IM 05/27/25 16:01 262 mg ONCE ONE Administration Medical Decision Making Medical Decision Making MDM Narrative: 55-year-old female presenting with acute suicidal ideation in the setting of known bipolar disorder, active auditory hallucinations, and recent alcohol use. Patient medically stable on exam; labs and urine sent for clearance. Problem #1: Suicidal ideation Assessment: Active SI with specific plan to stab self; prior attempts and prior psychiatric hospitalization. Plan: Medically clear in ED (labs, urine studies ordered). Psychiatry/care team evaluation requested for placement and safety planning (patient requested DA referral). Maintain safety precautions while in ED. Problem #2: Bipolar disorder with psychotic features Assessment: History of bipolar disorder; currently endorsing hallucinations; unclear medication adherence though patient states daily use. Plan: Continue home bipolar medications per patient report; verify medication list when available. Psychiatry to reassess medication regimen during evaluation. Problem #3: Anxiety Assessment: Patient reports severe anxiety, requesting Ativan. Plan: Ativan ordered in ED for acute anxiety relief per provider. Consider hydroxyzine as alternative per bedside discussion. Problem #4: Alcohol use Assessment: Intermittent heavy vodka intake; last drink earlier today; history of mild withdrawal (confusion, no seizures). Plan: Monitor for alcohol withdrawal symptoms while in ED. Reassess need for CIWA protocol if withdrawal signs develop. Follow-up: Pending psychiatry disposition; further follow-up to be arranged by care team. Differential Diagnosis Differential Diagnoses: The differential diagnosis associated with the presentation includes Differential Diagnosis Bipolar disorder with psychotic features: Patient has a known history of bipolar disorder and is currently experiencing auditory hallucinations, visual phenomena, and acute suicidal ideation. Medication adherence is unclear. Major depressive disorder with psychosis: Severe depression can present with psychotic symptoms and suicidal ideation, especially in older adults. Substance-induced mood disorder (alcohol-related): Recent heavy alcohol intake and history of withdrawal may contribute to mood instability, psychosis, and anxiety. Delirium due to infection or metabolic derangement: Chronic immunosuppression and recent surgery increase risk for infection and metabolic disturbances, which can present with acute changes in mental status, psychosis, and agitation. Medication side effects or withdrawal: Polypharmacy and unclear medication adherence may contribute to neuropsychiatric symptoms. Alcohol withdrawal: History of withdrawal symptoms (confusion) and recent heavy intake; risk for withdrawal-related agitation, psychosis, and mood changes. Pain and post-surgical complications: Recent abdominal surgery may contribute to pain, sleep disruption, and psychological distress. Thyroid dysfunction: History of thyroidectomy; abnormal thyroid hormone levels can cause mood changes, psychosis, and anxiety. Medication nonadherence: Patient unable to recall medication names; nonadherence may precipitate psychiatric decompensation. Admission/Observation Consideration of admission/observation: Escalation of care including admission/observation considered (likely ) Consult Healthcare Provider Management of the patient was discussed with: Behavioral Health Provider (CARE) Lab Data MDM Lab Attestation statement: I reviewed the patient's lab results. 05/27/25 10:30 05/27/25 10:30 Labs: Lab Results 05/27/25 05/27/25 Range/Units 10: 11: WBC 7.7 (4.8-10.8) X10*3/uL RBC 4.47 (4.20-5.50) X10*6/uL Hgb 14.0 (12.0-16.0) g/dl Hct 40.7 (37.0-47.0) % MCV 91.1 (80.0-98.0) fL MCH 31.3 (27.0-33.0) pg MCHC 34.4 (31.0-35.0) g/dl RDW 13.2 (11.0-16.0) % Plt Count 320 D (160-400) X10*3/uL MPV 8.9 L (9.4-12.3) fL Immature Gran % (Auto) 0.3 (0.0-0.4) % Neut % (Auto) 56.0 (45-73) % Lymph % (Auto) 32.9 (20-40) % Garrett % (Auto) 7.7 (2-11) % Eos % (Auto) 1.7 (0-4) % Baso % (Auto) 1.4 (0-2) % Lymph # (Auto) 2.5 (1.2-4.9) X10*3/uL Garrett # (Auto) 0.6 (0.1-1.2) X10*3/uL Eos # (Auto) 0.1 (0.0-0.4) X10*3/uL Baso # (Auto) 0.1 (0.0-0.2) X10*3/uL Abs Immat Gran (auto) 0.02 (0.00-0.03) X10*3/uL Absolute Neuts (auto) 4.3 (2.0-8.3) x10*3/uL Absolute Nucleated RBC 0.000 (0.0-0.012) X10*3/uL Nucleated RBC % (auto) 0.0 (0.0-0.2) /100WBC Sodium 145 (135-145) mmol/L Potassium 4.0 (3.3-5.1) mmol/L Chloride 106 (96-108) mmol/L Carbon Dioxide 26 (22-29) mmol/L Anion Gap 17 (12-20) BUN 10 (9-16) mg/dL Creatinine 0.67 (0.5-1.4) mg/dL Estim Creat Clear Calc 93.3 Estimated GFR > 60 Random Glucose 102 (60-115) mg/dL Calcium 9.2 D (8.4-10.2) mg/dL Magnesium 2.5 (1.6-2.6) mg/dL Total Bilirubin 0.7 (0.0-1.0) mg/dL AST 231 H (5-31) U/L ALT 162 H (0-31) U/L Alkaline Phosphatase 114 (39-117) U/L Total Protein 7.3 (6.5-8.0) g/dL Albumin 4.5 (3.5-5.0) g/dL Urine Color Dark Yellow Urine Appearance Clear Urine pH 5.0 (5.0-9.0) Ur Specific H[place]t >= 1.030 H (1.005-1.025) Urine Protein 30 (1+) H (Neg-Trace) mg/dL Urine Glucose (UA) Negative (Negative) mg/dL Urine Ketones Trace (Negative) mg/dL Urine Blood Negative (Negative) Urine Nitrite Negative (Negative) Ur Leukocyte Esterase Negative (Negative) Urine RBC 0-2 (0-2) /HPF Urine WBC 0-5 (0-5) /HPF Ur Squamous Epith Cells 3-5 (0-2) /HPF Urine Bacteria None Seen (None Seen) Hyaline Casts 6-10 (0-2) /LPF Urine Test NEGATIVE (NEGATIVE) Salicylates < 5.0 L (15-30) mg/dL Urine Opiates Screen Not Detected (Not Detect) Ur Buprenorphine Scrn Not Detected (Not Detect) ng/mL Ur Oxycodone Screen Not Detected (Not Detect) ng/mL Urine Methadone Screen Not Detected (Not Detect) ng/mL Urine Fentanyl Screen Not Detected (Not Detect) Acetaminophen < 3 (<30) mcg/mL Ur Barbiturates Screen Not Detected (Not Detect) Ur Phencyclidine Scrn Not Detected (Not Detect) Ur Amphetamines Screen Not Detected (Not Detect) U Benzodiazepines Scrn Not Detected (Not Detect) Urine Cocaine Screen Not Detected (Not Detect) U Marijuana (THC) Screen Not Detected (Not Detect) Ethyl Alcohol 290 mg/dL External Record Review External record reviewed: Inpatient record, Office record, Outpatient record, Prior outpatient labs, Prior outpatient radiology, Primary care record and Outside ED record Chronic Conditions Patient?s care impacted by: Other (see hpi ) Critical Care Time Critical Care Time Critical Care Time: Yes Total Critical Care Time: 35 Attestation: I attest to this time spent taking care of the patient, obtaining history, physical, reviewing labs, imaging, speaking to my attending and or speaking to specialist. Or preforming a procedure Discharge Plan Discharge Clinical Impression: Suicidal ideation, Depression, Alcohol abuse Patient Disposition: Admitted As Inpatient Interventions: [place]-Suicide Risk Severity Scale Last Done: 05/27/25 10:25
[2025-05-27 10:57] LABS: Acetaminophen LAB < 3 mcg/mL (<30); Salicylate < 5.0 mg/dL (15-30)
[2025-05-27 11:35] LABS: Appearance Urine Clear; Glucose Urine UA Negative (Negative); PH 5.0 (5.0-9.0); Specific Gravity - Urine >= 1.030 (1.005-1.025); UMIC TRIGGER UACC YES; UPreg QC Valid YES
[2025-05-27 11:45] LABS: Cannabinoid Screen Urine Not Detected (Not Detect)
[2025-05-27 15:29] VITALS: BP 103/65; PULSE 102; RESP 18; TEMP 36.4; O2SAT 97
--- NOTE | 2025-05-27 15:41 | PC.NURSE ---
Pt wakes and is very anxious and tearful, she is tremulous and scored a CIWA of 13. she is given 2mg of Ativan. Plan for IPLOC she is in agreement and goes back to bed.
[2025-05-27] MEDS: PHENobarbitaL sodium 130 MG/ML IM ONCE 262 MG IM (16:22)
[2025-05-27 16:23] VITALS: BP 142/79; PULSE 90; RESP 16
--- NOTE | 2025-05-27 16:36 | PC.NURSE ---
Assumed care of patient at this time. Brought to main ED from pysch pod for concerns of CIWA of 13. Currently, pt awake and alert. States anxiety about 6/10, very mild relief from Ativan given by previous RN. Pt medicated per order with 1st dose of Phenobarb protocol. PIV placed. Awaiting plan for either medical admit or pysch admit.
--- NOTE | 2025-05-27 16:59 | PC.NURSE ---
PIV removed. Plan for patient to go to inpatient pysch unit
--- NOTE | 2025-05-27 18:48 | PC.NURSE ---
Addendum entered by Nahomy Ramesh RN 05/27/25 18:52: Pt is 167.4 lb, pt reports 72.6 lb weight loss since July d/t being on weight loss drug Tirzepatide Original Note: Tamara was transferred from [facility] ED bed #11 to M3 on a CV 05/27/25 at 1825 for treatment of bipolar and alcohol use d/o. Skin check unremarkable. Pt's gait was unsteady, pt reported feeling light headed. VS 142/78 HR 92 Temp 36.3 O2 98%. Per Saray Schmidt seizure precautions discontinued.
[2025-05-27] MEDS: PHENobarbitaL sodium 130 MG/ML VIAL IM Q3Hx2 197 MG IM ×2 (19:09→22:39)
[2025-05-27 19:29] VITALS: BMI 28.7
[2025-05-27 19:51] VITALS: BP 141/75; PULSE 75; RESP 16; TEMP 36.8; O2SAT 99
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
[2025-05-28 08:00] VITALS: BP 130/86; PULSE 95; RESP 20; TEMP 36.4; O2SAT 99
[2025-05-28 08:12] LABS: Alanine Aminotransferase 118 U/L (0-31); Albumin Level 3.8 g/dL (3.5-5.0); Alkaline Phosphatase 108 U/L (39-117); Aspartate Amino Transferase 119 U/L (5-31); Total Protein 6.2 g/dL (6.5-8.0)
[2025-05-28 08:22] LABS: Alanine Aminotransferase 120 U/L (0-31); Albumin Level 3.8 g/dL (3.5-5.0); Alkaline Phosphatase 108 U/L (39-117); Anion Gap 15 (12-20); Aspartate Amino Transferase 118 U/L (5-31); Blood Urea Nitrogen 10 mg/dL (9-16); Calcium 9.1 mg/dL (8.4-10.2); Carbon Dioxide 28 mmol/L (22-29); Chloride 101 mmol/L (96-108); Cholesterol 181 mg/dL (<200); Creatinine Clr Calc Pharmacy 94.9; Estimated Glomerular Filt Rate > 60; HDL Cholesterol 87 mg/dL (>40); Potassium 3.9 mmol/L (3.3-5.1); Sodium 140 mmol/L (135-145); Total Protein 6.2 g/dL (6.5-8.0); Triglycerides 54 mg/dL (<150)
[2025-05-28 08:39] LABS: Thyroid Stimulating Hormone 1.17 uIU/mL (0.32-4.0)
[2025-05-28 08:47] LABS: Folate 9.8 ng/mL (> or = 4.0); Vitamin B12 924 pg/mL (200-900)
[2025-05-28 09:17] VITALS: BP 128/72; PULSE 95
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
[2025-05-28 20:00] VITALS: BP 140/81; PULSE 96; RESP 16; TEMP 36.7; O2SAT 99
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
[2025-05-29 08:00] VITALS: BP 110/75; PULSE 85; RESP 16; TEMP 36.3; O2SAT 98
[2025-05-29 08:24] LABS: Alanine Aminotransferase 103 U/L (0-31); Albumin Level 3.7 g/dL (3.5-5.0); Alkaline Phosphatase 112 U/L (39-117); Aspartate Amino Transferase 87 U/L (5-31); Blood Urea Nitrogen 11 mg/dL (9-16); Calcium 9.3 mg/dL (8.4-10.2); Creatinine Clr Calc Pharmacy 90.8; Estimated Glomerular Filt Rate > 60; Total Protein 6.2 g/dL (6.5-8.0)
[2025-05-29 08:32] LABS: Anion Gap 14 (12-20); Carbon Dioxide 28 mmol/L (22-29); Chloride 105 mmol/L (96-108); Potassium 4.7 mmol/L (3.3-5.1); Sodium 142 mmol/L (135-145)
[2025-05-29 11:08] VITALS: BP 130/75; PULSE 94; RESP 16; TEMP 35.6; O2SAT 95
[2025-05-29 16:14] VITALS: BP 116/76; PULSE 96; RESP 16; TEMP 36.1; O2SAT 99
[2025-05-29 20:00] VITALS: BP 121/76; PULSE 97; RESP 16; TEMP 36.1; O2SAT 99
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
[2025-05-30 07:39] VITALS: BP 127/80; PULSE 93; RESP 18; TEMP 36.3; O2SAT 100
[2025-05-30 19:40] VITALS: BP 105/74; PULSE 92; RESP 16; TEMP 36.6; O2SAT 97
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
[2025-05-31 05:00] LABS: HBS Num1 0.00 mIU/mL (0-7.99); HBc Num1 0.04 S/CO (0.00-0.79); HBsAGNum1 0.35 S/CO (0.00-0.99); Hepatitis A Antibody IgM 0.16 Index (0-0.79); Hepatitis B Surface Antigen Negative (Negative); ~HepC Num1 0.08 S/CO (0.00-0.79); ~Hepatitis A Antibody IgM Nonreactive (Nonreactive); ~Hepatitis B Surface Antibody NONREACTIVE (Nonreactive); ~Hepatitis C Antibody Nonreactive (Nonreactive)
[2025-05-31 08:00] VITALS: BP 120/72; PULSE 79; RESP 16; TEMP 36.3; O2SAT 97
[2025-05-31 09:57] LABS: Alanine Aminotransferase 82 U/L (0-31); Albumin Level 3.9 g/dL (3.5-5.0); Alkaline Phosphatase 108 U/L (39-117); Anion Gap 10 (12-20); Aspartate Amino Transferase 59 U/L (5-31); Blood Urea Nitrogen 15 mg/dL (9-16); Calcium 9.2 mg/dL (8.4-10.2); Carbon Dioxide 26 mmol/L (22-29); Chloride 110 mmol/L (96-108); Creatinine Clr Calc Pharmacy 75.5; Estimated Glomerular Filt Rate > 60; Potassium 3.9 mmol/L (3.3-5.1); Sodium 142 mmol/L (135-145); Total Protein 6.6 g/dL (6.5-8.0)
--- NOTE | 2025-05-31 11:33 | PC.NURSE ---
Pt declined to receive flu vaccine when offered
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
[2025-05-31 19:45] VITALS: BP 129/81; PULSE 84; RESP 18; TEMP 36.1; O2SAT 98
[2025-06-01 07:36] VITALS: BP 121/69; PULSE 80; RESP 14; TEMP 35.8; O2SAT 98
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
== END 2025-06-01 11:20 | disposition home or self-care (01) | DRG 751 ==
LOC: HO.ED 10:45 → HO.PADLT16 15:36
PROVIDERS: Nurse Practitioner Family; Physician Assistant; Admitting Provider Social Worker; Emergency Provider Emergency Medicine; PCP Internal Medicine; Visit Provider Psychiatry & Neurology Psychiatry
DX: F32.2 Major depressive disorder, single episode, severe without psychotic features (principal); R45.851 Suicidal ideations; E78.5 Hyperlipidemia, unspecified; Y90.8 Blood alcohol level of 240 mg/100 ml or more; F10.929 Alcohol use, unspecified with intoxication, unspecified; F43.10 Post-traumatic stress disorder, unspecified; K59.03 Drug induced constipation; Z98.84 Bariatric surgery status; Z79.899 Other long term (current) drug therapy
CPT/HCPCS: 36415; 80053; 80061; 80076; 80143; 80179; 80307; 81001; 81025; 82607; 82746; 83036; 83735; 84443; 85025; 86704; 86706; 86709; 86803; 87340; 99285; J2560; S9485

== ENCOUNTER → 2025-05-27 15:31 | Outpatient (BNV) | payer BC, SELFPAY | PROVIDERS: Admitting Provider Social Worker; Emergency Provider Emergency Medicine; PCP Internal Medicine; Visit Provider Psychiatry & Neurology Psychiatry | DX: F10.939 Alcohol use, unspecified with withdrawal, unspecified (principal); F31.78 Bipolar disorder, in full remission, most recent episode mixed; F10.90 Alcohol use, unspecified, uncomplicated; F43.11 Post-traumatic stress disorder, acute | CPT/HCPCS: 90792 ==

== ENCOUNTER → 2025-05-27 15:31 | Outpatient (BNV) | payer BC, SELFPAY | PROVIDERS: Admitting Provider Social Worker; Emergency Provider Emergency Medicine; PCP Internal Medicine; Visit Provider Nurse Practitioner Family | DX: R74.01 Elevation of levels of liver transaminase levels (principal); K59.01 Slow transit constipation | CPT/HCPCS: 99252 ==

== ENCOUNTER 2025-06-09 14:58 | Outpatient (AMB) | payer BC, SELFPAY ==
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
[2025-06-09 15:04] VITALS: BP 120/70; PULSE 69; O2SAT 98; BMI 29.0
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
--- OUTSIDE RECORDS SUMMARY | 2025-06-09 23:30 | XMS_ITS | Clinical Summary ---
Author Organization [facility] Address [address] [place] [address] Phone Care Team Providers Care Console Operator Name Role Phone Kaylin Oneill MD Primary Care Provider [phone] Allergies No known active allergies Medications QUEtiapine [...] on file Sexual Orientation Not on file Last Filed Vital Signs Vital Sign Reading [...] patient's age to complete this topic Insurance [facility] Advance Directives * Full Code - [...] currently active code status orders. Care Teams Console Operator Relationship Specialty Start Date End Date Kaylin Oneill MD [address] [place] [id number] PCP - General Internal Medicine 12/24/24
== END 2025-06-09 15:30 | disposition home or self-care (01) ==
LOC: HO.HMCC 14:58
PROVIDERS: PCP Internal Medicine; Visit Provider Internal Medicine
DX: R44.0 Auditory hallucinations (principal); F32.2 Major depressive disorder, single episode, severe without psychotic features; Z51.89 Encounter for other specified aftercare; F43.10 Post-traumatic stress disorder, unspecified; F10.90 Alcohol use, unspecified, uncomplicated; R74.01 Elevation of levels of liver transaminase levels; Z91.51 Personal history of suicidal behavior